=== PATIENT | female | born 1975 | race Two or more races ===

== ENCOUNTER 2021-07-13 21:13 | Emergency (ER) | payer BC ==
--- NOTE | 2021-07-13 23:44 | EDM.PDOC ---
ED HPI GENERAL MEDICAL PROBLEM - General Chief Complaint: Respiratory Problem Stated Complaint: SOB/COUGH Time Seen by Provider: 07/13/21 23:28 Source of Information: Reports: Patient History Limitations: Reports: No Limitations - History of Present Illness INITIAL COMMENTS - FREE TEXT/NARRATIVE: Mrs. Sherman is a very pleasant 45-year-old woman who now presents the ED stating that she developed ageusia and anosmia yesterday, followed by a cough productive of greenish sputum and dyspnea today. She has had chills, but no fever. No recent nausea, vomiting, or diarrhea. She states that she took some Mucinex around 15:00 this afternoon, without improvement of her symptoms. Here in the ED, the patient's initial BP is found to be moderately elevated at 159/130, otherwise, she is hemodynamically stable, afebrile, saturating 94% on room air. She appears to be comfortable, in no acute distress. Prior to yesterday, the patient denies having a recent fever, chills, sore throat, ear pain, nasal or sinus congestion, cough, dyspnea, chest pain, palpitations, nausea, vomiting, constipation, diarrhea, abdominal pain, urinary symptoms, recent weight gain or weight loss, recent bloody bowel movements or black bowel movements, recent joint aches, headaches, or rashes. The patient's PCP is SHELLI He. She has not received a COVID vaccination. - Related Data Allergies Allergy/AdvReac Type Severity Reaction Status Date / Time No Known Allergies Allergy Verified 07/13/21 21:59 Home Meds: Home Meds . [No Known Home Meds] 07/13/21 [History] Past Medical History Endocrine/Metabolic History: Reports: Obesity/BMI 30+, Other (See Below) (Pre diabetes) - Past Surgical History HEENT Surgical History: Reports: Oral Surgery (dental extraction) Female Surgical History: Reports: Section (x 1) Oncologic Surgical History: Reports: Biopsy of Breast (right x 2, left x 1 - all benign) Social & Family History - Tobacco Use Tobacco Use Status *Q: Never Tobacco User Second Hand Smoke Exposure: No - Caffeine Use Caffeine Use: Reports: Coffee - Alcohol Use Alcohol Use History: Yes Alcohol Use Frequency: Socially - Recreational Drug Use Recreational Drug Use: No - Living Situation & Occupation Living situation: Reports: , with Spouse, with Family (3 kids) Occupation: Employed ([employer]) ED ROS GENERAL - Review of Systems Review Of Systems: Comprehensive ROS is negative, except as noted in HPI. ED EXAM, GENERAL - Physical Exam Exam: See Below Exam Limited By: No Limitations General Appearance: Alert, WD/WN, No Apparent Distress Eye Exam: Bilateral Eye: EOMI, Normal Inspection Ears: Normal External Exam, Hearing Grossly Normal Nose: Normal Inspection Throat/Mouth: Normal Inspection, Normal Lips, Normal Voice, No Airway Compromise Head: Atraumatic, Normocephalic Neck: Normal Inspection, Full Range of Motion Respiratory/Chest: No Respiratory Distress, Lungs Clear, Normal Breath Sounds, No Accessory Muscle Use. No: Decreased Breath Sounds, Crackles, Rhonchi, Wheezing, Stridor, Prolonged Expiration Cardiovascular: Normal Peripheral Pulses, Regular Rate, Rhythm, No Edema, No Gallop, No JVD, No Murmur, No Rub Peripheral Pulses: 3+: Radial (L), Radial (R) GI/Abdominal: Normal Bowel Sounds, Soft, Non-Tender, No Organomegaly, No Distention, No Abnormal Bruit, No Mass Back Exam: Normal Inspection, Full Range of Motion, NT Extremities: Normal Inspection, Normal Range of Motion, No Pedal Edema, Normal Capillary Refill Neurological: Alert, Oriented, Normal Cognition, No Motor/Sensory Deficits Psychiatric: Normal Affect Skin Exam: Warm, Dry, Intact, Normal Color, No Rash Course - Vital Signs Last Recorded V/S: Last Vital Signs Temp 36.7 C 07/13/21 22:24 Pulse 98 07/13/21 22:24 Resp 18 07/13/21 22:24 BP 159/130 H 07/13/21 22:24 Pulse Ox 94 L 07/13/21 22:24 - Orders/Labs/Meds Orders: Active Orders 24 hr Category Date Time Status Chest 1V Frontal [CR] Stat Exams 07/13/21 23:41 Taken Labs: Laboratory Tests 07/13/21 07/13/21 07/13/21 Range/Units 22:20 23:59 23:59 WBC 15.82 H (3.98-10.04) K/mm3 RBC 5.02 (3.98-5.22) M/mm3 Hgb 13.8 (11.2-15.7) gm/dl Hct 42.7 (34.1-44.9) % MCV 85.1 (79.4-94.8) fl MCH 27.5 (25.6-32.2) pg MCHC 32.3 (32.2-35.5) g/dl RDW Std Deviation 44.7 (36.4-46.3) fL Plt Count 286 (182-369) K/mm3 MPV 11.4 (9.4-12.3) fl Neutrophils % (Manual) 76 H (40-60) % Band Neutrophils % 0 (0-10) % Lymphocytes % (Manual) 15 L (20-40) % Atypical Lymphs % 0 % Monocytes % (Manual) 5 (2-10) % Eosinophils % (Manual) 3 (0.7-5.8) % Basophils % (Manual) 1 (0.1-1.2) Platelet Estimate Adequate RBC Morph Comment Normal Sodium 135 L (136-145) mEq/L Potassium 3.7 (3.5-5.1) mEq/L Chloride 100 (98-107) mEq/L Carbon Dioxide 26 (21-32) mEq/L Anion Gap 12.7 (5-15) BUN 8 (7-18) mg/dL Creatinine 0.8 (0.55-1.02) mg/dL Est Cr Clr Drug Dosing 67.72 mL/min Estimated GFR (MDRD) > 60 (>60) mL/min BUN/Creatinine Ratio 10.0 L (14-18) Glucose 128 H (70-99) mg/dL Calcium 8.6 (8.5-10.1) mg/dL Total Bilirubin 0.3 (0.2-1.0) mg/dL AST 12 L (15-37) U/L ALT 20 (14-59) U/L Alkaline Phosphatase 112 (46-116) U/L C-Reactive Protein 5.0 H* (<1.0) mg/dL Total Protein 8.1 (6.4-8.2) g/dl Albumin 3.5 (3.4-5.0) g/dl Globulin 4.6 gm/dL Albumin/Globulin Ratio 0.8 L (1-2) SARS-CoV-2 RNA (KATYA) Negative (NEGATIVE) - Re-Assessments/Exams Free Text/Narrative Re-Assessment/Exam: 07/13/21 23:42 Obviously, the patient's presentation is concerning for COVID-19. A swab for the SARS-CoV-2 virus was obtained at triage, but has not yet resulted. I have added some blood work and a portable chest x-ray. 07/14/21 01:37 Portable chest radiograph appears to be grossly normal. The cardiac silhouette is within normal limits. No pulmonary vascular congestion. No pleural effusions seen on this AP view. No focal infiltrate. No pneumothorax. Formal read per the Radiologist pending. The patient's CBC is remarkable for leukocytosis of 15.82, but with 0% bandemia, 76% neutrophilia, and 15% lymphopenia, with the remainder of her CBC being unremarkable. Her CMP is remarkable for slight hyperglycemia of 128 and is otherwise unremarkable. Her CRP is elevated at 5.0. Her swab for the SARS-CoV-2 virus is negative. 07/14/21 01:46 Test results discussed with the patient. While her swab for the SARS-CoV-2 virus returned negative, I explained that the sensitivity of the test is low early in the course of the patient's illness, as the amount of virus in the posterior oropharynx can be low. Of course, it is also possible that she has some other viral illness, but her particular constellation of symptoms is most compelling for COVID-19. I recommended that she retest in about 5 days, as the sensitivity of the test 5 to 7 days into the course of COVID-19 is nearly 100%. I recommended that she get retested on , 07/18/2021. I recommended that she strictly quarantine in the meantime. I will write her a note to be off work this week. Departure - Departure Time of Disposition: 01:50 Disposition: Home, Self-Care 01 Condition: Good Clinical Impression: Viral illness - Discharge Information *PRESCRIPTION DRUG MONITORING PROGRAM REVIEWED*: Not Applicable *COPY OF PRESCRIPTION DRUG MONITORING REPORT IN PATIENT [place]: Not Applicable Referrals: Mary Robles PA-C [Primary Care Provider] - Forms: ED Department Discharge, ED Return to Work/School Form Additional Instructions: You were seen in the emergency room after losing your sense of taste and smell yesterday, then developing shortness of breath and a cough with chills today. Work-up in the ER included several blood tests, a swab for the SARS-CoV-2 virus, and a chest x-ray. Your swab for the SARS-CoV-2 virus returned negative, however, your work-up demonstrated an elevated white blood cell count, but with low lymphocytes, which is concerning for COVID-19. Your CRP, a measure of inflammation, was also found to be elevated at 5.0, which is also concerning for COVID-19. The remainder of your work-up was unremarkable. Based on your history, physical exam, and ER tests, you are most likely suffering from a viral illness. As discussed, even though your swab for the SARS-CoV-2 virus was negative, that does not mean that you do not have COVID-19 - you could, as the sensitivity of the test is low early in the course of the illness. For that reason, we recommend that you get retested for COVID-19 on , 07/18/2021. It is very important that you strictly quarantine until/unless you get a negative test. A note to be off work through 07/22/2021 has been provided to you. If any other problems, including worsening of your symptoms, please do not hesitate to return to the ER. Sepsis Event Note (ED) - Focused Exam Vital Signs: Vital Signs Temp Pulse Resp BP Pulse Ox 07/13/21 22:24 36.7 C 98 18 159/130 H 94 L - My Orders Last 24 Hours: My Active Orders 07/13/21 23:41 Chest 1V Frontal [CR] Stat - Assessment/Plan Last 24 Hours: My Active Orders 07/13/21 23:41 Chest 1V Frontal [CR] Stat
--- NOTE | 2021-07-14 09:12 | CR ---
Chest: Portable view of the chest was obtained. Comparison: No prior chest imaging is available. Heart size and mediastinum are normal. Slight linear density is seen within the right upper chest believed to represent scarring. Lungs otherwise are clear. Bony structures show nothing acute. Impression: 1. Nothing acute is identified on portable chest x-ray. Diagnostic code #1
== END 2021-07-14 02:17 | disposition home or self-care (01) ==
LOC: JD.ED 21:13
DX: B34.9 Viral infection, unspecified (principal); E66.9 Obesity, unspecified; Z68.37 Body mass index [BMI] 37.0-37.9, adult; Z20.822 Contact with and (suspected) exposure to COVID-19
CPT/HCPCS: 36415; 71045; 71045-26; 80053; 85007; 85027; 86140; 99283-25; U0002

== ENCOUNTER 2021-09-14 13:41 | Inpatient (IN) | payer BC ==
[2021-09-14] MEDS ORDERED: Sodium Chloride 0.9% 10 ML Syringe FLUSH PRN (16:12)
[2021-09-14] MEDS ORDERED: Ondansetron 4 MG/2 ML SDV IVPUSH ONE (16:12)
--- NOTE | 2021-09-14 16:24 | EDM.PDOC ---
ED HPI GENERAL MEDICAL PROBLEM - General Chief Complaint: Respiratory Problem Stated Complaint: COVID SYMPTOMS Time Seen by Provider: 09/14/21 15:28 Source of Information: Reports: Patient History Limitations: Reports: No Limitations - History of Present Illness INITIAL COMMENTS - FREE TEXT/NARRATIVE: 45-year-old female presents the emergency department with complaints of fever, chills, body aches, decreased appetite, nausea, diarrhea, loss of sense of taste and smell, as well as fatigue. Her tested positive for Covid last evening. Patient states she developed symptoms 4 days ago. She states she has not had her Covid vaccine. Abdominal Pain Score (Numeric/FACES): 5 - Related Data Allergies Allergy/AdvReac Type Severity Reaction Status Date / Time No Known Allergies Allergy Verified 09/14/21 15:33 Home Meds: Home Meds Ibuprofen 200 mg PO Q6H PRN 09/15/21 [History] Past Medical History - Past Health History Medical/Surgical History: Denies Medical/Surgical History Neurological History: Reports: Migraines Endocrine/Metabolic History: Reports: Obesity/BMI 30+, Other (See Below) - Past Surgical History HEENT Surgical History: Reports: Oral Surgery Female Surgical History: Reports: Section Oncologic Surgical History: Reports: Biopsy of Breast Social & Family History - Tobacco Use Tobacco Use Status *Q: Never Tobacco User Second Hand Smoke Exposure: No - Caffeine Use Caffeine Use: Reports: None - Recreational Drug Use Recreational Drug Use: No - Living Situation & Occupation Living situation: Reports: , with Spouse, with Family (3 kids) Occupation: Employed ([employer]) ED ROS GENERAL - Review of Systems Review Of Systems: Comprehensive ROS is negative, except as noted in HPI. ED EXAM, GENERAL - Physical Exam Exam: See Below Exam Limited By: No Limitations General Appearance: Alert, WD/WN, Mild Distress Ears: Normal External Exam, Hearing Grossly Normal Nose: Normal Inspection Throat/Mouth: Normal Inspection, Normal Lips, Normal Voice, No Airway Compromise Head: Atraumatic Neck: Normal Inspection, Supple Respiratory/Chest: No Respiratory Distress, Chest Non-Tender, Decreased Breath Sounds, Crackles (Fine crackles noted to bilateral bases) Cardiovascular: Normal Peripheral Pulses, Regular Rate, Rhythm, No Edema, No Murmur Peripheral Pulses: 2+: Radial (L), Radial (R) GI/Abdominal: Normal Bowel Sounds, Soft, Non-Tender, No Distention (Female) Exam: Deferred Rectal (Female) Exam: Deferred Back Exam: Normal Inspection Extremities: Normal Inspection Neurological: Alert, Oriented, Normal Cognition Psychiatric: Normal Affect, Normal Mood Skin Exam: Warm, Dry, Intact, Normal Color, No Rash Lymphatic: No Adenopathy Course - Vital Signs Text/Narrative:: Physical exam reveals paroxysmal cough with fine crackles noted to the bilateral bases and diminished lung sounds. Covid swab is pending. Will also obtain lab studies to include a CBC, CMP, C-reactive level, magnesium and D-dimer. We will also obtain chest x-ray. Last Recorded V/S: Last Vital Signs Temp 97.0 F 09/18/21 04:01 Pulse 69 09/18/21 04:01 Resp 18 09/18/21 04:01 BP 119/80 09/18/21 04:01 Pulse Ox 92 L 09/18/21 04:01 - Orders/Labs/Meds Orders: Medication Orders Acetaminophen (Acetaminophen 325 Mg Tab) 650 mg PO Q4H PRN PRN Reason: Pain/Fever Albuterol (Albuterol 0.083% 2.5 Mg/3 Ml Neb Soln) 2.5 mg NEB Q2H PRN PRN Reason: Dyspnea Last Admin: 09/15/21 21:51 Dose: 2.5 mg Documented by: WILFRED Albuterol (Albuterol 6.7 Gm Inhaler) 0 gm INH Q2H PRN PRN Reason: SOB/Wheezing Albuterol/Ipratropium (Albuterol/Ipratropium 3.0-0.5 Mg/3 Ml Neb Soln) 3 ml NEB Q4H PRN PRN Reason: Shortness Of Breath/wheezing Cholecalciferol (Cholecalciferol (Vitamin D3) 5,000 Unit Cap) 5,000 unit PO DAILY [facility] [place] Last Admin: 09/17/21 08:22 Dose: 5,000 unit Documented by: Admin: 09/16/21 13:53 Dose: 5,000 unit Documented by: CLAUDIA Dexamethasone (Dexamethasone 6 Mg Tablet) 6 mg PO DAILY [facility] [place] Stop: 09/23/21 09:01 Last Admin: 09/17/21 08:22 Dose: 6 mg Documented by: Admin: 09/16/21 08:51 Dose: 6 mg Documented by: Admin: 09/15/21 10:08 Dose: 6 mg Documented by: MACKENZIE Docusate Sodium (Docusate Sodium 100 Mg Cap) 100 mg PO BID PRN PRN Reason: Constipation Enoxaparin Sodium (Enoxaparin 40 Mg/0.4 Ml Syringe) 40 mg SUBCUT DAILY [facility] [place] Last Admin: 09/17/21 08:22 Dose: 40 mg Documented by: Admin: 09/16/21 08:51 Dose: 40 mg Documented by: Admin: 09/15/21 10:07 Dose: 40 mg Documented by: MACKENZIE Remdesivir 100 mg/ Sodium (Chloride) 250 mls @ 250 mls/hr IV Q24H [facility] [place] Stop: 09/18/21 18:59 Last Admin: 09/17/21 17:29 Dose: 250 mls/hr Documented by: Infusion: 09/16/21 18:36 Dose: 250 mls/hr Documented by: Admin: 09/16/21 17:36 Dose: 250 mls/hr Documented by: Infusion: 09/15/21 18:25 Dose: 250 mls/hr Documented by: Admin: 09/15/21 17:25 Dose: 250 mls/hr Documented by: MACKENZIE Insulin Human Lispro (Insulin Lispro 100 Unit/Ml 3 Ml Kwikpen) 0 unit SUBCUT QIDACANDBED [facility] [place]; Protocol Last Admin: 09/17/21 21:46 Dose: 8 units Documented by: Admin: 09/17/21 17:35 Dose: 6 units Documented by: Admin: 09/17/21 12:33 Dose: 4 units Documented by: Admin: 09/17/21 08:23 Dose: 4 units Documented by: Admin: 09/16/21 21:43 Dose: 3 units Documented by: Admin: 09/16/21 17:34 Dose: 4 units Documented by: CLAUDIA Ondansetron HCl (Ondansetron 4 Mg/2 Ml Sdv) 4 mg IVPUSH Q6H PRN PRN Reason: Nausea Ondansetron HCl (Ondansetron 4 Mg Tab.Dis) 4 mg PO Q4H PRN PRN Reason: nausea, able to take PO Last Admin: 09/16/21 08:51 Dose: 4 mg Documented by: CLAUDIA Oxycodone HCl (Oxycodone 5 Mg Tab) 5 mg PO Q4H PRN PRN Reason: Pain (moderate 4-6) Sodium Chloride (Sodium Chloride 0.9% 10 Ml Syringe) 10 ml FLUSH ASDIRECTED PRN PRN Reason: Keep Vein Open Last Admin: 09/14/21 16:39 Dose: 10 ml Documented by: JARRETT Temazepam (Temazepam 15 Mg Cap) 15 mg PO BEDTIME PRN PRN Reason: Sleep Zinc Sulfate (Zinc Sulfate 220 Mg Cap) 220 mg PO DAILY [facility] [place] Last Admin: 09/17/21 08:22 Dose: 220 mg Documented by: Admin: 09/16/21 11:17 Dose: Not Given Documented by: CLAUDIA Labs: Laboratory Tests 09/14/21 09/14/21 09/14/21 Range/Units 15:20 16:30 16:30 WBC 8.13 (3.98-10.04) K/mm3 RBC 5.37 H (3.98-5.22) M/mm3 Hgb 14.4 (11.2-15.7) gm/dl Hct 44.8 (34.1-44.9) % MCV 83.4 (79.4-94.8) fl MCH 26.8 (25.6-32.2) pg MCHC 32.1 L (32.2-35.5) g/dl RDW Std Deviation 46.1 (36.4-46.3) fL Plt Count 243 (182-369) K/mm3 MPV 10.9 (9.4-12.3) fl Neut % (Auto) 81.1 H (34.0-71.1) % Lymph % (Auto) 10.7 L (19.3-51.7) % [place] % (Auto) 8.0 (4.7-12.5) % Eos % (Auto) 0 L (0.7-5.8) Baso % (Auto) 0.1 (0.1-1.2) % Neut # (Auto) 6.59 H (1.56-6.13) K/mm3 Lymph # (Auto) 0.87 L (1.18-3.74) K/mm3 [place] # (Auto) 0.65 H (0.24-0.36) K/mm3 Eos # (Auto) 0.00 L (0.04-0.36) K/mm3 Baso # (Auto) 0.01 (0.01-0.08) K/mm3 D-Dimer, Quantitative 0.38 (0.19-0.50) mg/L Sodium (136-145) mEq/L Potassium (3.5-5.1) mEq/L Chloride (98-107) mEq/L Carbon Dioxide (21-32) mEq/L Anion Gap (5-15) BUN (7-18) mg/dL Creatinine (0.55-1.02) mg/dL Est Cr Clr Drug Dosing mL/min Estimated GFR (MDRD) (>60) mL/min BUN/Creatinine Ratio (14-18) Glucose (70-99) mg/dL Calcium (8.5-10.1) mg/dL Magnesium (1.8-2.4) mg/dL Total Bilirubin (0.2-1.0) mg/dL AST (15-37) U/L ALT (14-59) U/L Alkaline Phosphatase (46-116) U/L C-Reactive Protein (<1.0) mg/dL Total Protein (6.4-8.2) g/dl Albumin (3.4-5.0) g/dl Globulin gm/dL Albumin/Globulin Ratio (1-2) SARS-CoV-2 RNA (KATYA) Positive H (NEGATIVE) 09/14/21 Range/Units 16:30 WBC (3.98-10.04) K/mm3 RBC (3.98-5.22) M/mm3 Hgb (11.2-15.7) gm/dl Hct (34.1-44.9) % MCV (79.4-94.8) fl MCH (25.6-32.2) pg MCHC (32.2-35.5) g/dl RDW Std Deviation (36.4-46.3) fL Plt Count (182-369) K/mm3 MPV (9.4-12.3) fl Neut % (Auto) (34.0-71.1) % Lymph % (Auto) (19.3-51.7) % [place] % (Auto) (4.7-12.5) % Eos % (Auto) (0.7-5.8) Baso % (Auto) (0.1-1.2) % Neut # (Auto) (1.56-6.13) K/mm3 Lymph # (Auto) (1.18-3.74) K/mm3 [place] # (Auto) (0.24-0.36) K/mm3 Eos # (Auto) (0.04-0.36) K/mm3 Baso # (Auto) (0.01-0.08) K/mm3 D-Dimer, Quantitative (0.19-0.50) mg/L Sodium 136 (136-145) mEq/L Potassium 4.0 (3.5-5.1) mEq/L Chloride 99 (98-107) mEq/L Carbon Dioxide 25 (21-32) mEq/L Anion Gap 16.0 H (5-15) BUN 11 (7-18) mg/dL Creatinine 0.9 (0.55-1.02) mg/dL Est Cr Clr Drug Dosing 60.19 mL/min Estimated GFR (MDRD) > 60 (>60) mL/min BUN/Creatinine Ratio 12.2 L (14-18) Glucose 124 H (70-99) mg/dL Calcium 8.3 L (8.5-10.1) mg/dL Magnesium 2.4 (1.8-2.4) mg/dL Total Bilirubin 0.4 (0.2-1.0) mg/dL AST 51 H (15-37) U/L ALT 50 (14-59) U/L Alkaline Phosphatase 87 (46-116) U/L C-Reactive Protein 8.6 H* (<1.0) mg/dL Total Protein 8.0 (6.4-8.2) g/dl Albumin 3.4 (3.4-5.0) g/dl Globulin 4.6 gm/dL Albumin/Globulin Ratio 0.7 L (1-2) SARS-CoV-2 RNA (KATYA) (NEGATIVE) Meds: Medications Generic Name Dose Route Start Last Admin Trade Name Freq PRN Reason Stop Dose Admin Acetaminophen 650 mg 09/14/21 22:54 Acetaminophen 325 Mg Tab PO Q4H PRN Pain/Fever Albuterol 2.5 mg 09/14/21 22:55 11/28/21 21:51 Albuterol 0.083% 2.5 Mg/3 Ml Neb Soln NEB 2.5 mg Q2H PRN Administration Dyspnea Albuterol 0 gm 09/16/21 10:35 Albuterol 6.7 Gm Inhaler INH Q2H PRN SOB/Wheezing Albuterol/Ipratropium 3 ml 09/15/21 06:41 Albuterol/Ipratropium 3.0-0.5 Mg/3 Ml Neb Soln NEB Q4H PRN Shortness Of Breath/wheezing Cholecalciferol 5,000 unit 09/16/21 13:00 09/17/21 08:22 Cholecalciferol (Vitamin D3) 5,000 Unit Cap PO 5,000 unit DAILY FRANK Administration Dexamethasone 6 mg 09/15/21 09:00 09/17/21 08:22 Dexamethasone 6 Mg Tablet PO 09/23/21 09:01 6 mg DAILY FRANK Administration Docusate Sodium 100 mg 09/15/21 06:41 Docusate Sodium 100 Mg Cap PO BID PRN Constipation Enoxaparin Sodium 40 mg 09/15/21 09:00 09/17/21 08:22 Enoxaparin 40 Mg/0.4 Ml Syringe SUBCUT 40 mg DAILY FRANK Administration Remdesivir 100 mg/ Sodium 250 mls @ 250 mls/hr 09/15/21 18:00 09/17/21 17:29 Chloride IV 09/18/21 18:59 250 mls/hr Q24H FRANK Administration Insulin Human Lispro 0 unit 09/16/21 17:00 09/17/21 21:46 Insulin Lispro 100 Unit/Ml 3 Ml Kwikpen SUBCUT 8 units QIDACANDBED FRANK Administration Protocol Ondansetron HCl 4 mg 09/14/21 22:55 Ondansetron 4 Mg/2 Ml Sdv IVPUSH Q6H PRN Nausea Ondansetron HCl 4 mg 09/15/21 06:41 09/16/21 08:51 Ondansetron 4 Mg Tab.Dis PO 4 mg Q4H PRN Administration nausea, able to take PO Oxycodone HCl 5 mg 09/15/21 06:41 Oxycodone 5 Mg Tab PO Q4H PRN Pain (moderate 4-6) Sodium Chloride 10 ml 09/14/21 16:12 09/14/21 16:39 Sodium Chloride 0.9% 10 Ml Syringe FLUSH 10 ml ASDIRECTED PRN Administration Keep Vein Open Temazepam 15 mg 09/15/21 06:41 Temazepam 15 Mg Cap PO BEDTIME PRN Sleep Zinc Sulfate 220 mg 09/16/21 10:30 09/17/21 08:22 Zinc Sulfate 220 Mg Cap PO 220 mg DAILY FRANK Administration Discontinued Medications Generic Name Dose Route Start Last Admin Trade Name Salty PRN Reason Stop Dose Admin Dexamethasone 6 mg 09/14/21 18:58 09/14/21 19:33 Dexamethasone 6 Mg Tablet PO 09/14/21 18:59 6 mg ONETIME ONE Administration Remdesivir 200 mg/ Sodium 250 mls @ 250 mls/hr 09/14/21 18:57 09/14/21 19:31 Chloride IV 09/14/21 19:56 250 mls/hr ONETIME ONE Administration Sodium Chloride 1,000 mls @ 150 mls/hr 09/15/21 07:45 09/15/21 17:25 Normal Saline IV 150 mls/hr ASDIRECTED FRANK Administration Morphine Sulfate 2 mg 09/15/21 06:41 Morphine 2 Mg/Ml Syringe IVPUSH 09/16/21 06:41 Q2H PRN Pain (severe 7-10) Ondansetron HCl 4 mg 09/14/21 16:12 09/14/21 16:39 Ondansetron 4 Mg/2 Ml Sdv IVPUSH 09/14/21 16:13 4 mg ONETIME ONE Administration - Radiology Interpretation Free Text/Narrative:: Scattered areas of infiltrate noted to bilateral lungs consistent with Covid. Formal radiologist report is pending. - Re-Assessments/Exams Free Text/Narrative Re-Assessment/Exam: 09/14/21 18:00 Hematology reveals a WBC 7.1, hemoglobin 16.3, hematocrit 46.2, platelet count 213 Chemistry reveals a sodium of 140, potassium 3.7, anion gap 11.7, BUN 13, creatinine 0.9, GFR greater than 60, magnesium 2.2, troponin less than 0.017, proBNP 194 Patient is influenza A B and Covid negative Nursing staff notifies me that patient's oxygen saturations are 87 to 88% on room air. They have applied oxygen at 2 L per nasal cannula and the patient's oxygen levels came up to 96%. With that, the patient has no longer a candidate for antibody treatment. She likely will be admitted to the hospital. I have discussed the case with the hospitalist, Dr. Rodriguez and he has agreed to admit the patient into his service. Departure - Departure Time of Disposition: 21:45 Disposition: Admitted As Inpatient 67 Condition: Good Clinical Impression: Pneumonia due to 2019 novel coronavirus - Discharge Information Sepsis Event Note (ED) - Evaluation Sepsis Screening Result: No Definite Risk
[2021-09-14] MEDS ORDERED: REMDESIVIR 200 MG in Sodium Chloride 0.9% 250 ML IV ONE (18:57)
[2021-09-14] MEDS ORDERED: Dexamethasone 6 MG TABLET PO ONE (18:58)
[2021-09-14] MEDS ORDERED: Acetaminophen 325 MG Tab PO PRN (22:54)
[2021-09-14] MEDS ORDERED: Ondansetron 4 MG/2 ML SDV IVPUSH PRN (22:55)
[2021-09-14] MEDS ORDERED: Albuterol 0.083% 2.5 MG/3 ML Neb Soln NEB PRN (22:55)
[2021-09-15] MEDS ORDERED: Albuterol/Ipratropium 3.0-0.5 MG/3 ML Neb Soln NEB PRN (06:41)
[2021-09-15] MEDS ORDERED: Morphine 2 MG/ML SYRINGE IVPUSH PRN (06:41)
[2021-09-15] MEDS ORDERED: oxyCODONE 5 MG Tab PO PRN (06:41)
[2021-09-15] MEDS ORDERED: Docusate Sodium 100 MG Cap PO PRN (06:41)
[2021-09-15] MEDS ORDERED: Temazepam 15 MG Cap PO PRN (06:41)
--- NOTE | 2021-09-15 06:41 | PCM.HP.2 ---
H&P History of Present Illness - General Date of Service: 09/15/21 Admit Problem/Dx: Admission Diagnosis/Problem Admission Diagnosis/Problem Hypoxemia Source of Information: Patient History Limitations: Reports: No Limitations - History of Present Illness Initial Comments - Free Text/Narative: The patient is a 45-year-old lady who had presented to the emergency department with a complaint of shortness of breath, cough. Her symptoms started 4 days ago. The patient had been tested positive for COVID-19 infection. The patient says that she has had fever, chills and body aches along with some nausea and diarrhea. Patient has also reported that she has lost her sense of taste and smell. The patient only has been taking [id number] ibuprofen for pain. The patient reports that her had tested positive for COVID-19. The patient has had no specific aggravating or relieving factors although rest does improve her breathing. The patient reports that she has been healthy otherwise. Onset of Symptoms: Reports: Gradual Duration of Symptoms: Reports: Day(s):, Getting Worse Location: Reports: Generalized Quality: Reports: Ache, Burning, Dull Severity: Mild Improves with: Reports: Rest Worsens with: Reports: None Context: Reports: Sick Contact Associated Symptoms: Reports: cough w sputum, Fever/Chills Abdominal Pain Score (Numeric/FACES): 5 - Related Data Allergies/Adverse Reactions: Allergies Allergy/AdvReac Type Severity Reaction Status Date / Time No Known Allergies Allergy Verified 09/14/21 15:33 Home Medications: Home Meds Ibuprofen 200 mg PO Q6H PRN 09/15/21 [History] Past Medical History - Past Health History Medical/Surgical History: Denies Medical/Surgical History HEENT History: Reports: None Cardiovascular History: Reports: None Respiratory History: Reports: None Gastrointestinal History: Reports: None Genitourinary History: Reports: None Musculoskeletal History: Reports: None Neurological History: Reports: Migraines Psychiatric History: Reports: None Endocrine/Metabolic History: Reports: Obesity/BMI 30+ Hematologic History: Reports: None Immunologic History: Reports: None Oncologic (Cancer) History: Reports: None Dermatologic History: Reports: None - Infectious Disease History Infectious Disease History: Reports: Novel Coronavirus - Past Surgical History HEENT Surgical History: Reports: Oral Surgery Female Surgical History: Reports: Section Endocrine Surgical History: Reports: None Neurological Surgical History: Reports: None Oncologic Surgical History: Reports: Biopsy of Breast Social & Family History - Family History Family Medical History: Unobtainable - Tobacco Use Tobacco Use Status *Q: Former Tobacco User Used Tobacco, but Quit: Yes Month/Year Tobacco Last Used: 2006 Second Hand Smoke Exposure: No - Caffeine Use Caffeine Use: Reports: None - Recreational Drug Use Recreational Drug Use: No - Living Situation & Occupation Living situation: Reports: , with Spouse, with Family (3 kids) Occupation: Employed ([employer]) H&P Review of Systems - Review of Systems: Review Of Systems: See Below General: Reports: Fever, Chills, Fatigue, Decreased Appetite HEENT: Reports: No Symptoms Pulmonary: Reports: Shortness of Breath, Cough, Sputum Cardiovascular: Reports: No Symptoms Gastrointestinal: Reports: Nausea, Vomiting Genitourinary: Reports: No Symptoms Musculoskeletal: Reports: No Symptoms Skin: Reports: No Symptoms Psychiatric: Reports: No Symptoms Neurological: Reports: No Symptoms Hematologic/Lymphatic: Reports: No Symptoms Immunologic: Reports: No Symptoms Exam - Exam Exam: See Below - Vital Signs Vital Signs: Last Vital Signs Temp 36.4 C 09/15/21 04:10 Pulse 76 09/15/21 04:10 Resp 16 09/15/21 04:10 BP 92/79 09/15/21 04:10 Pulse Ox 97 09/15/21 06:00 Weight: 88.541 kg - Exam Quality Assessment: Supplemental Oxygen, DVT Prophylaxis General: Alert, Oriented, Cooperative HEENT: Conjunctiva Clear, EACs Clear, EOMI, Hearing Intact, Mucosa Moist & [place], Nares Patent, PERRLA Neck: Supple, Trachea Midline Lungs: Normal Respiratory Effort, Crackles (Bibasilar) Cardiovascular: Regular Rate, Regular Rhythm GI/Abdominal Exam: Normal Bowel Sounds, Soft, Non-Tender, No Distention (Female) Exam: Deferred Rectal (Female) Exam: Deferred Back Exam: Normal Inspection, Full Range of Motion Extremities: Normal Inspection, Normal Range of Motion, No Pedal Edema Skin: Warm, Dry, Intact Neurological: Cranial Nerves Intact, Normal Gait, Normal Speech Neuro Extensive - Mental Status: Alert, Oriented x3 Neuro Extensive - Motor, Sensory, Reflexes: CN II-XII Intact Psychiatric: Alert, Normal Affect, Normal Mood - Patient Data Lab Results Last 24 hrs: Laboratory Results - last 24 hr 09/14/21 09/14/21 09/14/21 Range/Units 15:20 16:30 16:30 WBC 8.13 (3.98-10.04) K/mm3 RBC 5.37 H (3.98-5.22) M/mm3 Hgb 14.4 (11.2-15.7) gm/dl Hct 44.8 (34.1-44.9) % MCV 83.4 (79.4-94.8) fl MCH 26.8 (25.6-32.2) pg MCHC 32.1 L (32.2-35.5) g/dl RDW Std Deviation 46.1 (36.4-46.3) fL Plt Count 243 (182-369) K/mm3 MPV 10.9 (9.4-12.3) fl Neut % (Auto) 81.1 H (34.0-71.1) % Lymph % (Auto) 10.7 L (19.3-51.7) % Trigg % (Auto) 8.0 (4.7-12.5) % Eos % (Auto) 0 L (0.7-5.8) Baso % (Auto) 0.1 (0.1-1.2) % Neut # (Auto) 6.59 H (1.56-6.13) K/mm3 Lymph # (Auto) 0.87 L (1.18-3.74) K/mm3 Trigg # (Auto) 0.65 H (0.24-0.36) K/mm3 Eos # (Auto) 0.00 L (0.04-0.36) K/mm3 Baso # (Auto) 0.01 (0.01-0.08) K/mm3 D-Dimer, Quantitative 0.38 (0.19-0.50) mg/L Sodium (136-145) mEq/L Potassium (3.5-5.1) mEq/L Chloride (98-107) mEq/L Carbon Dioxide (21-32) mEq/L Anion Gap (5-15) BUN (7-18) mg/dL Creatinine (0.55-1.02) mg/dL Est Cr Clr Drug Dosing mL/min Estimated GFR (MDRD) (>60) mL/min BUN/Creatinine Ratio (14-18) Glucose (70-99) mg/dL Calcium (8.5-10.1) mg/dL Magnesium (1.8-2.4) mg/dL Total Bilirubin (0.2-1.0) mg/dL AST (15-37) U/L ALT (14-59) U/L Alkaline Phosphatase (46-116) U/L C-Reactive Protein (<1.0) mg/dL Total Protein (6.4-8.2) g/dl Albumin (3.4-5.0) g/dl Globulin gm/dL Albumin/Globulin Ratio (1-2) SARS-CoV-2 RNA (KATYA) Positive H (NEGATIVE) 09/14/21 Range/Units 16:30 WBC (3.98-10.04) K/mm3 RBC (3.98-5.22) M/mm3 Hgb (11.2-15.7) gm/dl Hct (34.1-44.9) % MCV (79.4-94.8) fl MCH (25.6-32.2) pg MCHC (32.2-35.5) g/dl RDW Std Deviation (36.4-46.3) fL Plt Count (182-369) K/mm3 MPV (9.4-12.3) fl Neut % (Auto) (34.0-71.1) % Lymph % (Auto) (19.3-51.7) % Trigg % (Auto) (4.7-12.5) % Eos % (Auto) (0.7-5.8) Baso % (Auto) (0.1-1.2) % Neut # (Auto) (1.56-6.13) K/mm3 Lymph # (Auto) (1.18-3.74) K/mm3 Trigg # (Auto) (0.24-0.36) K/mm3 Eos # (Auto) (0.04-0.36) K/mm3 Baso # (Auto) (0.01-0.08) K/mm3 D-Dimer, Quantitative (0.19-0.50) mg/L Sodium 136 (136-145) mEq/L Potassium 4.0 (3.5-5.1) mEq/L Chloride 99 (98-107) mEq/L Carbon Dioxide 25 (21-32) mEq/L Anion Gap 16.0 H (5-15) BUN 11 (7-18) mg/dL Creatinine 0.9 (0.55-1.02) mg/dL Est Cr Clr Drug Dosing 60.19 mL/min Estimated GFR (MDRD) > 60 (>60) mL/min BUN/Creatinine Ratio 12.2 L (14-18) Glucose 124 H (70-99) mg/dL Calcium 8.3 L (8.5-10.1) mg/dL Magnesium 2.4 (1.8-2.4) mg/dL Total Bilirubin 0.4 (0.2-1.0) mg/dL AST 51 H (15-37) U/L ALT 50 (14-59) U/L Alkaline Phosphatase 87 (46-116) U/L C-Reactive Protein 8.6 H* (<1.0) mg/dL Total Protein 8.0 (6.4-8.2) g/dl Albumin 3.4 (3.4-5.0) g/dl Globulin 4.6 gm/dL Albumin/Globulin Ratio 0.7 L (1-2) SARS-CoV-2 RNA (KATYA) (NEGATIVE) Result Diagrams: 09/15/21 07:26 09/15/21 07:26 Sepsis Event Note - Evaluation Sepsis Screening Result: No Definite Risk - Focused Exam Vital Signs: Vital Signs Temp Pulse Pulse Resp BP BP Pulse Ox 09/15/21 06:00 09/15/21 04:10 36.4 C 76 16 92/79 97 09/15/21 00:24 37.0 C 85 16 112/72 90 L 09/14/21 22:27 31 H 09/14/21 22:26 37.7 C 91 18 118/64 91 L 09/14/21 21:45 92 18 115/74 96 Pulse Ox 09/15/21 06:00 97 09/15/21 04:10 09/15/21 00:24 09/14/21 22:27 09/14/21 22:26 09/14/21 21:45 - Problem List (1) Acute respiratory failure due to COVID-19 SNOMED Code(s): 495163734 ICD Code: U07.1 - COVID-19; J96.00 - ACUTE RESPIRATORY FAILURE, UNSP W HYPOXIA OR HYPERCAPNIA Status: Acute Priority: High Current Visit: Yes (2) Pneumonia due to 2019 novel coronavirus SNOMED Code(s): 330526822121077200 ICD Code: U07.1 - COVID-19; J12.82 - PNEUMONIA DUE TO CORONAVIRUS DISEASE 2019 Status: Acute Current Visit: Yes Problem List Initiated/Reviewed/Updated: Yes Orders Last 24hrs: Active Orders 24 hr Category Date Time Status Admission Status [Patient Status] [ADT] Routine ADT 09/14/21 19:03 Active Activity as Tolerated [RC] BID Care 09/14/21 22:52 Active Incentive Spirometry [RT Incentive Spirometry] [RC] Care 09/14/21 23:00 Active Q1HWA Oxygen Therapy Adult [Oxygen Therapy] [RC] ASDIRECTED Care 09/14/21 22:52 Active RT Aerosol Therapy [RC] ASDIRECTED Care 09/14/21 22:57 Active Regular Diet [DIET] Diet 09/15/21 Breakfast Active Chest 1V Frontal [CR] Stat Exams 09/14/21 16:12 Taken CBC W/O DIFF,HEMOGRAM [HEME] Routine Lab 09/15/21 05:00 Ordered CMP [COMPREHENSIVE METABOLIC PN,CMP] [CHEM] Routine Lab 09/15/21 05:00 Ordered CRP [C-REACTIVE PROTEIN] [CHEM] Routine Lab 09/15/21 05:00 Ordered MAGNESIUM [CHEM] Routine Lab 09/15/21 05:00 Ordered Acetaminophen [TylenoL] Med 09/14/21 22:54 Active 650 mg PO Q4H PRN Albuterol [Proventil Neb Soln] Med 09/14/21 22:55 Active 2.5 mg NEB Q2H PRN Ondansetron [Zofran] Med 09/14/21 22:55 Active 4 mg IVPUSH Q6H PRN Sodium Chloride 0.9% [Saline Flush] Med 09/14/21 16:12 Active 10 ml FLUSH ASDIRECTED PRN Pulse Oximetry Continuous Monitoring [OM.PC] Routine Oth 09/14/21 23:00 Active Saline Lock Insert [OM.PC] Stat Oth 09/14/21 16:12 Ordered Code Status [Resuscitation Status] Routine Resus Stat 09/14/21 22:51 Ordered Medication Orders Acetaminophen (Acetaminophen 325 Mg Tab) 650 mg PO Q4H PRN PRN Reason: Pain/Fever Albuterol (Albuterol 0.083% 2.5 Mg/3 Ml Neb Soln) 2.5 mg NEB Q2H PRN PRN Reason: Dyspnea Ondansetron HCl (Ondansetron 4 Mg/2 Ml Sdv) 4 mg IVPUSH Q6H PRN PRN Reason: Nausea Sodium Chloride (Sodium Chloride 0.9% 10 Ml Syringe) 10 ml FLUSH ASDIRECTED PRN PRN Reason: Keep Vein Open Last Admin: 09/14/21 16:39 Dose: 10 ml Documented by: JARRETT Assessment/Plan Comment:: The patient is an otherwise healthy 45-year-old lady who had been admitted secondary to acute respiratory failure due to COVID-19 pneumonia. The patient has been started on remdesivir 100 mg IV for the next 4 days. She is also on dexamethasone 6 mg p.o. daily. The patient has been anticoagulated with the use of Lovenox 40 mg subcutaneous daily. The patient has been instructed in the use of the incentive spirometer as well as Acapella. Repeat laboratory studies have been ordered for the morning. The patient should be appropriate for discharge once she has completed the full dose of remdesivir or sooner if she has improved significantly. The patient has been encouraged to ambulate. - Mortality Measure Prognosis:: Good
[2021-09-15] MEDS ORDERED: Sodium Chloride 0.9% 1,000 ML IV SCH (07:45)
--- NOTE | 2021-09-15 08:50 | CR ---
Chest: Frontal view of the chest was obtained. Comparison: Prior chest x-ray of 07/14/21. Patchy increased density is seen peripherally within both lungs. This is an interval change from prior chest x-ray. Heart size is normal. Upper mediastinum is within normal limits. Bony structures show nothing acute. Impression: 1. Findings suspicious for moderate COVID-19 pneumonia. Please correlate. Diagnostic code #3
[2021-09-15] MEDS: Enoxaparin 40 MG/0.4 ML Syringe SUBCUT SCH (10:07)
[2021-09-15] MEDS: Dexamethasone 6 MG TABLET PO SCH (10:08)
[2021-09-15] MEDS: REMDESIVIR 100 MG in Sodium Chloride 0.9% 250 ML IV SCH (17:25)
--- NOTE | 2021-09-16 08:18 | PCM.PN ---
<Juan Antonio - Last Filed: 09/16/21 12:56> - General Info Date of Service: 09/16/21 Admission Dx/Problem (Free Text): Admission Diagnosis/Problem Admission Diagnosis/Problem Hypoxemia Functional Status: Reports: Pain Controlled, Tolerating Diet, Ambulating, Urinating, Incentive Spirometry. Denies: New Symptoms - Review of Systems General: Reports: Weakness, Fatigue. Denies: No Symptoms, Fever, Malaise, Chills HEENT: Reports: No Symptoms. Denies: Headaches, Sore Throat Pulmonary: Reports: Shortness of Breath, Cough, Sputum. Denies: No Symptoms, Pleuritic Chest Pain Cardiovascular: Reports: Dyspnea on Exertion. Denies: No Symptoms, Chest Pain, Palpitations, Edema Gastrointestinal: Reports: No Symptoms. Denies: Abdominal Pain, Constipation, Diarrhea, Nausea, Vomiting Genitourinary: Reports: No Symptoms. Denies: Pain Musculoskeletal: Reports: No Symptoms Skin: Reports: No Symptoms. Denies: Cyanosis Neurological: Reports: No Symptoms. Denies: Confusion, Dizziness, Headache, Numbness, Pre-Existing Deficit, Seizure, Syncope, Tingling, Difficulty Walking, Gait Disturbance Psychiatric: Reports: No Symptoms - Patient Data Vitals - Most Recent: Last Vital Signs Temp 97.5 F 09/16/21 03:51 Pulse 70 09/16/21 03:51 Resp 16 09/16/21 03:51 BP 115/82 09/16/21 03:51 Pulse Ox 93 L 09/16/21 03:51 Weight - Most Recent: 90.129 kg I&O - Last 24 Hours: Intake & Output 09/15/21 09/16/21 09/16/21 22:59 06:59 14:59 Intake Total 800 1000 Output Total 500 Balance 800 500 Lab Results Last 24 Hours: Laboratory Results - last 24 hr 09/15/21 09/16/21 09/16/21 Range/Units 07:26 06:25 06:25 WBC 5.88 (3.98-10.04) K/mm3 RBC 4.87 (3.98-5.22) M/mm3 Hgb 12.9 (11.2-15.7) gm/dl Hct 40.6 (34.1-44.9) % MCV 83.4 (79.4-94.8) fl MCH 26.5 (25.6-32.2) pg MCHC 31.8 L (32.2-35.5) g/dl RDW Std Deviation 45.3 (36.4-46.3) fL Plt Count 302 (182-369) K/mm3 MPV 11.4 (9.4-12.3) fl Neut % (Auto) 74.6 H (34.0-71.1) % Lymph % (Auto) 14.5 L (19.3-51.7) % Nuckolls % (Auto) 10.4 (4.7-12.5) % Eos % (Auto) 0 L (0.7-5.8) Baso % (Auto) 0.2 (0.1-1.2) % Neut # (Auto) 4.39 (1.56-6.13) K/mm3 Lymph # (Auto) 0.85 L (1.18-3.74) K/mm3 [place]olls # (Auto) 0.61 H (0.24-0.36) K/mm3 Eos # (Auto) 0.00 L (0.04-0.36) K/mm3 Baso # (Auto) 0.01 (0.01-0.08) K/mm3 D-Dimer, Quantitative 0.26 (0.19-0.50) mg/L Sodium 139 (136-145) mEq/L Potassium 4.1 (3.5-5.1) mEq/L Chloride 100 (98-107) mEq/L Carbon Dioxide 25 (21-32) mEq/L Anion Gap 18.1 H (5-15) BUN 12 (7-18) mg/dL Creatinine 0.8 (0.55-1.02) mg/dL Est Cr Clr Drug Dosing 67.72 mL/min Estimated GFR (MDRD) > 60 (>60) mL/min BUN/Creatinine Ratio 15.0 (14-18) Glucose 178 H (70-99) mg/dL Calcium 8.5 (8.5-10.1) mg/dL Magnesium 2.5 H (1.8-2.4) mg/dL Total Bilirubin 0.2 (0.2-1.0) mg/dL AST 73 H (15-37) U/L ALT 79 H (14-59) U/L Alkaline Phosphatase 87 (46-116) U/L C-Reactive Protein 9.7 H* (<1.0) mg/dL Total Protein 7.7 (6.4-8.2) g/dl Albumin 3.2 L (3.4-5.0) g/dl Globulin 4.5 gm/dL Albumin/Globulin Ratio 0.7 L (1-2) 09/16/ Range/Units 06:25 WBC (3.98-10.04) K/mm3 RBC (3.98-5.22) M/mm3 Hgb (11.2-15.7) gm/dl Hct (34.1-44.9) % MCV (79.4-94.8) fl MCH (25.6-32.2) pg MCHC (32.2-35.5) g/dl RDW Std Deviation (36.4-46.3) fL Plt Count (182-369) K/mm3 MPV (9.4-12.3) fl Neut % (Auto) (34.0-71.1) % Lymph % (Auto) (19.3-51.7) % [place]uckolls % (Auto) (4.7-12.5) % Eos % (Auto) (0.7-5.8) Baso % (Auto) (0.1-1.2) % Neut # (Auto) (1.56-6.13) K/mm3 Lymph # (Auto) (1.18-3.74) K/mm3 [place] # (Auto) (0.24-0.36) K/mm3 Eos # (Auto) (0.04-0.36) K/mm3 Baso # (Auto) (0.01-0.08) K/mm3 D-Dimer, Quantitative (0.19-0.50) mg/L Sodium 139 (136-145) mEq/L Potassium 4.3 (3.5-5.1) mEq/L Chloride 105 (98-107) mEq/L Carbon Dioxide 25 (21-32) mEq/L Anion Gap 13.3 (5-15) BUN 12 (7-18) mg/dL Creatinine 0.8 (0.55-1.02) mg/dL Est Cr Clr Drug Dosing 67.72 mL/min Estimated GFR (MDRD) > 60 (>60) mL/min BUN/Creatinine Ratio 15.0 (14-18) Glucose 312 H (70-99) mg/dL Calcium 8.2 L (8.5-10.1) mg/dL Magnesium 2.4 (1.8-2.4) mg/dL Total Bilirubin 0.1 L (0.2-1.0) mg/dL AST 28 (15-37) U/L ALT 57 (14-59) U/L Alkaline Phosphatase 72 (46-116) U/L C-Reactive Protein 4.5 H* (<1.0) mg/dL Total Protein 6.4 (6.4-8.2) g/dl Albumin 2.8 L (3.4-5.0) g/dl Globulin 3.6 gm/dL Albumin/Globulin Ratio 0.8 L (1-2) Med Orders - Current: Current Medications Acetaminophen (Acetaminophen 325 Mg Tab) 650 mg PO Q4H PRN PRN Reason: Pain/Fever Albuterol (Albuterol 0.083% 2.5 Mg/3 Ml Neb Soln) 2.5 mg NEB Q2H PRN PRN Reason: Dyspnea Last Admin: 09/15/21 21:51 Dose: 2.5 mg Documented by: Albuterol/Ipratropium (Albuterol/Ipratropium 3.0-0.5 Mg/3 Ml Neb Soln) 3 ml NEB Q4H PRN PRN Reason: Shortness Of Breath/wheezing Dexamethasone (Dexamethasone 6 Mg Tablet) 6 mg PO DAILY [facility] Last Admin: 09/15/21 10:08 Dose: 6 mg Documented by: Docusate Sodium (Docusate Sodium 100 Mg Cap) 100 mg PO BID PRN PRN Reason: Constipation Enoxaparin Sodium (Enoxaparin 40 Mg/0.4 Ml Syringe) 40 mg SUBCUT DAILY [facility] Last Admin: 09/15/21 10:07 Dose: 40 mg Documented by: Remdesivir 100 mg/ Sodium (Chloride) 250 mls @ 250 mls/hr IV Q24H [facility] Stop: 09/18/21 18:59 Last Admin: 09/15/21 17:25 Dose: 250 mls/hr Documented by: Sodium Chloride (Normal Saline) 1,000 mls @ 150 mls/hr IV ASDIRECTED [facility] Last Admin: 09/15/21 17:25 Dose: 150 mls/hr Documented by: Ondansetron HCl (Ondansetron 4 Mg/2 Ml Sdv) 4 mg IVPUSH Q6H PRN PRN Reason: Nausea Ondansetron HCl (Ondansetron 4 Mg Tab.Dis) 4 mg PO Q4H PRN PRN Reason: nausea, able to take PO Oxycodone HCl (Oxycodone 5 Mg Tab) 5 mg PO Q4H PRN PRN Reason: Pain (moderate 4-6) Sodium Chloride (Sodium Chloride 0.9% 10 Ml Syringe) 10 ml FLUSH ASDIRECTED PRN PRN Reason: Keep Vein Open Last Admin: 09/14/21 16:39 Dose: 10 ml Documented by: Temazepam (Temazepam 15 Mg Cap) 15 mg PO BEDTIME PRN PRN Reason: Sleep Discontinued Medications Dexamethasone (Dexamethasone 6 Mg Tablet) 6 mg PO ONETIME ONE Stop: 09/14/21 18:59 Last Admin: 09/14/21 19:33 Dose: 6 mg Documented by: Remdesivir 200 mg/ Sodium (Chloride) 250 mls @ 250 mls/hr IV ONETIME ONE Stop: 09/14/21 19:56 Last Admin: 09/14/21 19:31 Dose: 250 mls/hr Documented by: Morphine Sulfate (Morphine 2 Mg/Ml Syringe) 2 mg IVPUSH Q2H PRN PRN Reason: Pain (severe 7-10) Stop: 09/16/21 06:41 Ondansetron HCl (Ondansetron 4 Mg/2 Ml Sdv) 4 mg IVPUSH ONETIME ONE Stop: 09/14/21 16:13 Last Admin: 09/14/21 16:39 Dose: 4 mg Documented by: - Exam Quality Assessment: Supplemental Oxygen (1L), DVT Prophylaxis. No: Urine Catheter General: Alert, Oriented, Cooperative, No Acute Distress HEENT: Pupils Equal, Pupils Reactive, Mucous Membr. Moist/[place] Neck: Supple, Trachea Midline Lungs: Normal Respiratory Effort, Decreased Breath Sounds, Crackles Cardiovascular: Regular Rate, Regular Rhythm GI/Abdominal Exam: Normal Bowel Sounds, Soft, Non-Tender, No Distention (Female) Exam: Deferred Back Exam: Normal Inspection, Full Range of Motion Extremities: Normal Inspection, Normal Range of Motion, Non-Tender, No Pedal Edema Skin: Warm, Dry, Intact Neurological: No New Focal Deficit Psy/Mental Status: Alert, Normal Affect, Normal Mood - Patient Data Lab Results Last 24 hrs: Laboratory Results - last 24 hr 09/15/21 09/16/21 09/16/21 Range/Units 07:26 06:25 06:25 WBC 5.88 (3.98-10.04) K/mm3 RBC 4.87 (3.98-5.22) M/mm3 Hgb 12.9 (11.2-15.7) gm/dl Hct 40.6 (34.1-44.9) % MCV 83.4 (79.4-94.8) fl MCH 26.5 (25.6-32.2) pg MCHC 31.8 L (32.2-35.5) g/dl RDW Std Deviation 45.3 (36.4-46.3) fL Plt Count 302 (182-369) K/mm3 MPV 11.4 (9.4-12.3) fl Neut % (Auto) 74.6 H (34.0-71.1) % Lymph % (Auto) 14.5 L (19.3-51.7) % Nuckolls % (Auto) 10.4 (4.7-12.5) % Eos % (Auto) 0 L (0.7-5.8) Baso % (Auto) 0.2 (0.1-1.2) % Neut # (Auto) 4.39 (1.56-6.13) K/mm3 Lymph # (Auto) 0.85 L (1.18-3.74) K/mm3 [place]olls # (Auto) 0.61 H (0.24-0.36) K/mm3 Eos # (Auto) 0.00 L (0.04-0.36) K/mm3 Baso # (Auto) 0.01 (0.01-0.08) K/mm3 D-Dimer, Quantitative 0.26 (0.19-0.50) mg/L Sodium 139 (136-145) mEq/L Potassium 4.1 (3.5-5.1) mEq/L Chloride 100 (98-107) mEq/L Carbon Dioxide 25 (21-32) mEq/L Anion Gap 18.1 H (5-15) BUN 12 (7-18) mg/dL Creatinine 0.8 (0.55-1.02) mg/dL Est Cr Clr Drug Dosing 67.72 mL/min Estimated GFR (MDRD) > 60 (>60) mL/min BUN/Creatinine Ratio 15.0 (14-18) Glucose 178 H (70-99) mg/dL Calcium 8.5 (8.5-10.1) mg/dL Magnesium 2.5 H (1.8-2.4) mg/dL Total Bilirubin 0.2 (0.2-1.0) mg/dL AST 73 H (15-37) U/L ALT 79 H (14-59) U/L Alkaline Phosphatase 87 (46-116) U/L C-Reactive Protein 9.7 H* (<1.0) mg/dL Total Protein 7.7 (6.4-8.2) g/dl Albumin 3.2 L (3.4-5.0) g/dl Globulin 4.5 gm/dL Albumin/Globulin Ratio 0.7 L (1-2) 09/16/21 Range/Units 06:25 WBC (3.98-10.04) K/mm3 RBC (3.98-5.22) M/mm3 Hgb (11.2-15.7) gm/dl Hct (34.1-44.9) % MCV (79.4-94.8) fl MCH (25.6-32.2) pg MCHC (32.2-35.5) g/dl RDW Std Deviation (36.4-46.3) fL Plt Count (182-369) K/mm3 MPV (9.4-12.3) fl Neut % (Auto) (34.0-71.1) % Lymph % (Auto) (19.3-51.7) % [place]uckolls % (Auto) (4.7-12.5) % Eos % (Auto) (0.7-5.8) Baso % (Auto) (0.1-1.2) % Neut # (Auto) (1.56-6.13) K/mm3 Lymph # (Auto) (1.18-3.74) K/mm3 [place]oll[place] # (Auto) (0.24-0.36) K/mm3 Eos # (Auto) (0.04-0.36) K/mm3 Baso # (Auto) (0.01-0.08) K/mm3 D-Dimer, Quantitative (0.19-0.50) mg/L Sodium 139 (136-145) mEq/L Potassium 4.3 (3.5-5.1) mEq/L Chloride 105 (98-107) mEq/L Carbon Dioxide 25 (21-32) mEq/L Anion Gap 13.3 (5-15) BUN 12 (7-18) mg/dL Creatinine 0.8 (0.55-1.02) mg/dL Est Cr Clr Drug Dosing 67.72 mL/min Estimated GFR (MDRD) > 60 (>60) mL/min BUN/Creatinine Ratio 15.0 (14-18) Glucose 312 H (70-99) mg/dL Calcium 8.2 L (8.5-10.1) mg/dL Magnesium 2.4 (1.8-2.4) mg/dL Total Bilirubin 0.1 L (0.2-1.0) mg/dL AST 28 (15-37) U/L ALT 57 (14-59) U/L Alkaline Phosphatase 72 (46-116) U/L C-Reactive Protein 4.5 H* (<1.0) mg/dL Total Protein 6.4 (6.4-8.2) g/dl Albumin 2.8 L (3.4-5.0) g/dl Globulin 3.6 gm/dL Albumin/Globulin Ratio 0.8 L (1-2) Result Diagrams: 09/16/21 06:25 09/16/21 06:25 Sepsis Event Note - Evaluation Sepsis Screening Result: No Definite Risk - Focused Exam Vital Signs: Vital Signs Temp Pulse Resp BP Pulse Ox Pulse Ox 09/16/21 03:51 97.5 F 70 16 115/82 93 L 09/15/21 23:31 97.2 F 83 20 113/69 88 L 09/15/21 21:53 92 L - Problem List & Annotations (1) Acute respiratory failure due to COVID-19 SNOMED Code(s): 571997263 Code(s): U07.1 - COVID-19; J96.00 - ACUTE RESPIRATORY FAILURE, UNSP W HYPOXIA OR HYPERCAPNIA Status: Acute Priority: High Current Visit: Yes (2) Pneumonia due to 2019 novel coronavirus SNOMED Code(s): 564639864895431416 Code(s): U07.1 - COVID-19; J12.82 - PNEUMONIA DUE TO CORONAVIRUS DISEASE 2019 Status: Acute Priority: High Current Visit: Yes - Problem List Review Problem List Initiated/Reviewed/Updated: Yes - Plan Plan:: 09/15/2021 The patient is an otherwise healthy 45-year-old lady who had been admitted secondary to acute respiratory failure due to COVID-19 pneumonia. The patient has been started on remdesivir 100 mg IV for the next 4 days. She is also on dexamethasone 6 mg p.o. daily. The patient has been anticoagulated with the use of Lovenox 40 mg subcutaneous daily. The patient has been instructed in the use of the incentive spirometer as well as Acapella. Repeat laboratory studies have been ordered for the morning. The patient should be appropriate for discharge once she has completed the full dose of remdesivir or sooner if she has improved significantly. The patient has been encouraged to ambulate. 09/16/2021 45-year-old female admitted to the floor for COVID-19 pneumonia with secondary respiratory failure. She continues on remdesivir and dexamethasone 6 mg daily. She is also receiving 40 mg Lovenox daily. She remains on 1 L of oxygen. She has been utilizing incentive spirometry and Acapella and proning. She reports she overall feels much better than yesterday. WBC today is 5.88. Hemoglobin 12.9. Platelet 302,000. Neutrophils are elevated 74.6%. D-dimer was 0.26. Sodium was 139. Potassium 4.3. Chloride 105. Carbon dioxide 25. BUN is 12. Creatinine 0.8. GFR greater than 60. Glucose is 312. Hemoglobin A1c was obtained is 6.9. Because of this her elevated hemoglobin A1c and glucose we will order low-dose sliding scale insulin and a consistent carbohydrate diet. We will also order dietitian consult and diabetic nurse educator consult. Magnesium today was 2.4. Total bilirubin 0.1. AST was 28, ALT 57, alkaline phosphatase 72. CRP was 4.5. Albumin was 2.8. Vitamin D was obtained and was 25.4. We will start her on daily vitamin D supplementation as well. She will remain hospitalized until off oxygen or completes her treatment. <Andrew Rodriguez - Last Filed: 09/16/21 15:48> - Patient Data Vitals - Most Recent: Last Vital Signs Temp 36.1 C 09/16/21 08:58 Pulse 76 09/16/21 08:58 Resp 16 09/16/21 08:58 BP 114/72 09/16/21 08:58 Pulse Ox 93 L 09/16/21 10:27 I&O - Last 24 Hours: Intake & Output 09/16/21 09/16/21 09/16/21 06:59 14:59 22:59 Intake Total 1000 120 Output Total 500 Balance 500 120 Lab Results Last 24 Hours: Laboratory Results - last 24 hr 09/16/21 09/16/21 09/16/21 Range/Units 06:25 06:25 06:25 WBC 5.88 (3.98-10.04) K/mm3 RBC 4.87 (3.98-5.22) M/mm3 Hgb 12.9 (11.2-15.7) gm/dl Hct 40.6 (34.1-44.9) % MCV 83.4 (79.4-94.8) fl MCH 26.5 (25.6-32.2) pg MCHC 31.8 L (32.2-35.5) g/dl RDW Std Deviation 45.3 (36.4-46.3) fL Plt Count 302 (182-369) K/mm3 MPV 11.4 (9.4-12.3) fl Neut % (Auto) 74.6 H (34.0-71.1) % Lymph % (Auto) 14.5 L (19.3-51.7) % [place]olls % (Auto) 10.4 (4.7-12.5) % Eos % (Auto) 0 L (0.7-5.8) Baso % (Auto) 0.2 (0.1-1.2) % Neut # (Auto) 4.39 (1.56-6.13) K/mm3 Lymph # (Auto) 0.85 L (1.18-3.74) K/mm3 [place] # (Auto) 0.61 H (0.24-0.36) K/mm3 Eos # (Auto) 0.00 L (0.04-0.36) K/mm3 Baso # (Auto) 0.01 (0.01-0.08) K/mm3 Manual Slide Review Normal smear D-Dimer, Quantitative 0.26 (0.19-0.50) mg/L Sodium 139 (136-145) mEq/L Potassium 4.3 (3.5-5.1) mEq/L Chloride 105 (98-107) mEq/L Carbon Dioxide 25 (21-32) mEq/L Anion Gap 13.3 (5-15) BUN 12 (7-18) mg/dL Creatinine 0.8 (0.55-1.02) mg/dL Est Cr Clr Drug Dosing 67.72 mL/min Estimated GFR (MDRD) > 60 (>60) mL/min BUN/Creatinine Ratio 15.0 (14-18) Glucose 312 H (70-99) mg/dL Hemoglobin A1c ( - 5.6) % Calcium 8.2 L (8.5-10.1) mg/dL Magnesium 2.4 (1.8-2.4) mg/dL Total Bilirubin 0.1 L (0.2-1.0) mg/dL AST 28 (15-37) U/L ALT 57 (14-59) U/L Alkaline Phosphatase 72 (46-116) U/L C-Reactive Protein 4.5 H* (<1.0) mg/dL Total Protein 6.4 (6.4-8.2) g/dl Albumin 2.8 L (3.4-5.0) g/dl Globulin 3.6 gm/dL Albumin/Globulin Ratio 0.8 L (1-2) Vitamin D 25-Hydroxy (30.0-100.0) ng/ml 09/16/21 09/16/21 Range/Units 06:25 06:30 WBC (3.98-10.04) K/mm3 RBC (3.98-5.22) M/mm3 Hgb (11.2-15.7) gm/dl Hct (34.1-44.9) % MCV (79.4-94.8) fl MCH (25.6-32.2) pg MCHC (32.2-35.5) g/dl RDW Std Deviation (36.4-46.3) fL Plt Count (182-369) K/mm3 MPV (9.4-12.3) fl Neut % (Auto) (34.0-71.1) % Lymph % (Auto) (19.3-51.7) % [place] % (Auto) (4.7-12.5) % Eos % (Auto) (0.7-5.8) Baso % (Auto) (0.1-1.2) % Neut # (Auto) (1.56-6.13) K/mm3 Lymph # (Auto) (1.18-3.74) K/mm3 [place] # (Auto) (0.24-0.36) K/mm3 Eos # (Auto) (0.04-0.36) K/mm3 Baso # (Auto) (0.01-0.08) K/mm3 Manual Slide Review D-Dimer, Quantitative (0.19-0.50) mg/L Sodium (136-145) mEq/L Potassium (3.5-5.1) mEq/L Chloride (98-107) mEq/L Carbon Dioxide (21-32) mEq/L Anion Gap (5-15) BUN (7-18) mg/dL Creatinine (0.55-1.02) mg/dL Est Cr Clr Drug Dosing mL/min Estimated GFR (MDRD) (>60) mL/min BUN/Creatinine Ratio (14-18) Glucose (70-99) mg/dL Hemoglobin A1c 6.9 H ( - 5.6) % Calcium (8.5-10.1) mg/dL Magnesium (1.8-2.4) mg/dL Total Bilirubin (0.2-1.0) mg/dL AST (15-37) U/L ALT (14-59) U/L Alkaline Phosphatase (46-116) U/L C-Reactive Protein (<1.0) mg/dL Total Protein (6.4-8.2) g/dl Albumin (3.4-5.0) g/dl Globulin gm/dL Albumin/Globulin Ratio (1-2) Vitamin D 25-Hydroxy 25.4 L (30.0-100.0) ng/ml Med Orders - Current: Current Medications Acetaminophen (Acetaminophen 325 Mg Tab) 650 mg PO Q4H PRN PRN Reason: Pain/Fever Albuterol (Albuterol 0.083% 2.5 Mg/3 Ml Neb Soln) 2.5 mg NEB Q2H PRN PRN Reason: Dyspnea Last Admin: 09/15/21 21:51 Dose: 2.5 mg Documented by: Albuterol (Albuterol 6.7 Gm Inhaler) 0 gm INH Q2H PRN PRN Reason: SOB/Wheezing Albuterol/Ipratropium (Albuterol/Ipratropium 3.0-0.5 Mg/3 Ml Neb Soln) 3 ml NEB Q4H PRN PRN Reason: Shortness Of Breath/wheezing Cholecalciferol (Cholecalciferol (Vitamin D3) 5,000 Unit Cap) 5,000 unit PO DAILY [facility] Last Admin: 09/16/21 13:53 Dose: 5,000 unit Documented by: Dexamethasone (Dexamethasone 6 Mg Tablet) 6 mg PO DAILY [facility] Stop: 09/23/21 09:01 Last Admin: 09/16/21 08:51 Dose: 6 mg Documented by: Docusate Sodium (Docusate Sodium 100 Mg Cap) 100 mg PO BID PRN PRN Reason: Constipation Enoxaparin Sodium (Enoxaparin 40 Mg/0.4 Ml Syringe) 40 mg SUBCUT DAILY [facility] Last Admin: 09/16/21 08:51 Dose: 40 mg Documented by: Remdesivir 100 mg/ Sodium (Chloride) 250 mls @ 250 mls/hr IV Q24H [facility] Stop: 09/18/21 18:59 Last Admin: 09/15/21 17:25 Dose: 250 mls/hr Documented by: Insulin Human Lispro (Insulin Lispro 100 Unit/Ml 3 Ml Kwikpen) 0 unit SUBCUT QI DACANDBED [facility]; Protocol Ondansetron HCl (Ondansetron 4 Mg/2 Ml Sdv) 4 mg IVPUSH Q6H PRN PRN Reason: Nausea Ondansetron HCl (Ondansetron 4 Mg Tab.Dis) 4 mg PO Q4H PRN PRN Reason: nausea, able to take PO Last Admin: 09/16/21 08:51 Dose: 4 mg Documented by: Oxycodone HCl (Oxycodone 5 Mg Tab) 5 mg PO Q4H PRN PRN Reason: Pain (moderate 4-6) Sodium Chloride (Sodium Chloride 0.9% 10 Ml Syringe) 10 ml FLUSH ASDIRECTED PRN PRN Reason: Keep Vein Open Last Admin: 09/14/21 16:39 Dose: 10 ml Documented by: Temazepam (Temazepam 15 Mg Cap) 15 mg PO BEDTIME PRN PRN Reason: Sleep Zinc Sulfate (Zinc Sulfate 220 Mg Cap) 220 mg PO DAILY [facility] Last Admin: 09/16/21 11:17 Dose: Not Given Documented by: Discontinued Medications Dexamethasone (Dexamethasone 6 Mg Tablet) 6 mg PO ONETIME ONE Stop: 09/14/21 18:59 Last Admin: 09/14/21 19:33 Dose: 6 mg Documented by: Remdesivir 200 mg/ Sodium (Chloride) 250 mls @ 250 mls/hr IV ONETIME ONE Stop: 09/14/21 19:56 Last Admin: 09/14/21 19:31 Dose: 250 mls/hr Documented by: Sodium Chloride (Normal Saline) 1,000 mls @ 150 mls/hr IV ASDIRECTED [facility] Last Admin: 09/15/21 17:25 Dose: 150 mls/hr Documented by: Morphine Sulfate (Morphine 2 Mg/Ml Syringe) 2 mg IVPUSH Q2H PRN PRN Reason: Pain (severe 7-10) Stop: 09/16/21 06:41 Ondansetron HCl (Ondansetron 4 Mg/2 Ml Sdv) 4 mg IVPUSH ONETIME ONE Stop: 09/14/21 16:13 Last Admin: 09/14/21 16:39 Dose: 4 mg Documented by: - Patient Data Lab Results Last 24 hrs: Laboratory Results - last 24 hr 09/16/21 09/16/21 09/16/21 Range/Units 06:25 06:25 06:25 WBC 5.88 (3.98-10.04) K/mm3 RBC 4.87 (3.98-5.22) M/mm3 Hgb 12.9 (11.2-15.7) gm/dl Hct 40.6 (34.1-44.9) % MCV 83.4 (79.4-94.8) fl MCH 26.5 (25.6-32.2) pg MCHC 31.8 L (32.2-35.5) g/dl RDW Std Deviation 45.3 (36.4-46.3) fL Plt Count 302 (182-369) K/mm3 MPV 11.4 (9.4-12.3) fl Neut % (Auto) 74.6 H (34.0-71.1) % Lymph % (Auto) 14.5 L (19.3-51.7) % [place] % (Auto) 10.4 (4.7-12.5) % Eos % (Auto) 0 L (0.7-5.8) Baso % (Auto) 0.2 (0.1-1.2) % Neut # (Auto) 4.39 (1.56-6.13) K/mm3 Lymph # (Auto) 0.85 L (1.18-3.74) K/mm3 [place]s # (Auto) 0.61 H (0.24-0.36) K/mm3 Eos # (Auto) 0.00 L (0.04-0.36) K/mm3 Baso # (Auto) 0.01 (0.01-0.08) K/mm3 Manual Slide Review Normal smear D-Dimer, Quantitative 0.26 (0.19-0.50) mg/L Sodium 139 (136-145) mEq/L Potassium 4.3 (3.5-5.1) mEq/L Chloride 105 (98-107) mEq/L Carbon Dioxide 25 (21-32) mEq/L Anion Gap 13.3 (5-15) BUN 12 (7-18) mg/dL Creatinine 0.8 (0.55-1.02) mg/dL Est Cr Clr Drug Dosing 67.72 mL/min Estimated GFR (MDRD) > 60 (>60) mL/min BUN/Creatinine Ratio 15.0 (14-18) Glucose 312 H (70-99) mg/dL Hemoglobin A1c ( - 5.6) % Calcium 8.2 L (8.5-10.1) mg/dL Magnesium 2.4 (1.8-2.4) mg/dL Total Bilirubin 0.1 L (0.2-1.0) mg/dL AST 28 (15-37) U/L ALT 57 (14-59) U/L Alkaline Phosphatase 72 (46-116) U/L C-Reactive Protein 4.5 H* (<1.0) mg/dL Total Protein 6.4 (6.4-8.2) g/dl Albumin 2.8 L (3.4-5.0) g/dl Globulin 3.6 gm/dL Albumin/Globulin Ratio 0.8 L (1-2) Vitamin D 25-Hydroxy (30.0-100.0) ng/ml 09/16/21 09/16/21 Range/Units 06:25 06:30 WBC (3.98-10.04) K/mm3 RBC (3.98-5.22) M/mm3 Hgb (11.2-15.7) gm/dl Hct (34.1-44.9) % MCV (79.4-94.8) fl MCH (25.6-32.2) pg MCHC (32.2-35.5) g/dl RDW Std Deviation (36.4-46.3) fL Plt Count (182-369) K/mm3 MPV (9.4-12.3) fl Neut % (Auto) (34.0-71.1) % Lymph % (Auto) (19.3-51.7) % Nuckolls % (Auto) (4.7-12.5) % Eos % (Auto) (0.7-5.8) Baso % (Auto) (0.1-1.2) % Neut # (Auto) (1.56-6.13) K/mm3 Lymph # (Auto) (1.18-3.74) K/mm3 Nuckolls # (Auto) (0.24-0.36) K/mm3 Eos # (Auto) (0.04-0.36) K/mm3 Baso # (Auto) (0.01-0.08) K/mm3 Manual Slide Review D-Dimer, Quantitative (0.19-0.50) mg/L Sodium (136-145) mEq/L Potassium (3.5-5.1) mEq/L Chloride (98-107) mEq/L Carbon Dioxide (21-32) mEq/L Anion Gap (5-15) BUN (7-18) mg/dL Creatinine (0.55-1.02) mg/dL Est Cr Clr Drug Dosing mL/min Estimated GFR (MDRD) (>60) mL/min BUN/Creatinine Ratio (14-18) Glucose (70-99) mg/dL Hemoglobin A1c 6.9 H ( - 5.6) % Calcium (8.5-10.1) mg/dL Magnesium (1.8-2.4) mg/dL Total Bilirubin (0.2-1.0) mg/dL AST (15-37) U/L ALT (14-59) U/L Alkaline Phosphatase (46-116) U/L C-Reactive Protein (<1.0) mg/dL Total Protein (6.4-8.2) g/dl Albumin (3.4-5.0) g/dl Globulin gm/dL Albumin/Globulin Ratio (1-2) Vitamin D 25-Hydroxy 25.4 L (30.0-100.0) ng/ml Result Diagrams: 09/16/21 06:25 09/16/21 06:25 Sepsis Event Note - Focused Exam Vital Signs: Vital Signs Temp Pulse Resp BP Pulse Ox Pulse Ox 09/16/21 10:27 93 L 09/16/21 08:58 36.1 C 76 16 114/72 90 L 09/16/21 03:51 36.4 C 70 16 115/82 93 L - Problem List & Annotations (1) Acute respiratory failure due to COVID-19 SNOMED Code(s): 421151021 Code(s): U07.1 - COVID-19; J96.00 - ACUTE RESPIRATORY FAILURE, UNSP W HYPOXIA OR HYPERCAPNIA Status: Acute Priority: High Current Visit: Yes (2) Pneumonia due to 2019 novel coronavirus SNOMED Code(s): 654430806068616859 Code(s): U07.1 - COVID-19; J12.82 - PNEUMONIA DUE TO CORONAVIRUS DISEASE 2019 Status: Acute Priority: High Current Visit: Yes - My Orders Last 24 Hours: My Active Orders 09/15/21 18:00 Remdesivir 100 mg Sodium Chloride 0.9% [Normal Saline] 250 ml IV Q24H 09/16/21 Lunch Consistent Carbohydrate Diet [DIET] - Free Text/Narrative Note: I have seen and examined the patient independently of SHELLI Antonio. I have discussed the case with him. I have also reviewed and agree with the plan of care as outlined by him. Please see orders.
[2021-09-16] MEDS: Enoxaparin 40 MG/0.4 ML Syringe SUBCUT SCH (08:51)
[2021-09-16] MEDS: Dexamethasone 6 MG TABLET PO SCH (08:51)
[2021-09-16] MEDS: Ondansetron 4 MG Tab.DIS PO PRN (08:51)
[2021-09-16] MEDS ORDERED: Albuterol 6.7 GM Inhaler INH PRN (10:35)
[2021-09-16] MEDS: Zinc Sulfate 220 MG Cap PO SCH (11:17)
[2021-09-16 12:22] LABS: HEMOGLOBIN A1C 6.9 %
[2021-09-16] MEDS: Cholecalciferol (Vitamin D3) 5,000 UNIT Cap PO SCH (13:53)
[2021-09-16] MEDS: Insulin Lispro 100 Unit/ML 3 ML KwikPen SUBCUT SCH ×2 (17:34→21:43)
[2021-09-16] MEDS: REMDESIVIR 100 MG in Sodium Chloride 0.9% 250 ML IV SCH (17:36)
--- NOTE | 2021-09-17 07:27 | PCM.PN ---
<Juan Antonio - Last Filed: 09/17/21 09:41> - General Info Date of Service: 09/17/21 Admission Dx/Problem (Free Text): Admission Diagnosis/Problem Admission Diagnosis/Problem Hypoxemia Functional Status: Reports: Pain Controlled, Tolerating Diet, Ambulating, Urinating, Incentive Spirometry. Denies: New Symptoms - Review of Systems General: Reports: Weakness (improving ). Denies: Fever, Fatigue, Malaise, Chills HEENT: Reports: No Symptoms. Denies: Headaches, Sore Throat Pulmonary: Reports: Shortness of Breath, Pleuritic Chest Pain, Cough, Sputum. Denies: Wheezing Cardiovascular: Reports: Dyspnea on Exertion. Denies: Chest Pain, Palpitations, Edema Gastrointestinal: Reports: No Symptoms. Denies: Abdominal Pain, Constipation, Diarrhea, Nausea, Vomiting Genitourinary: Reports: No Symptoms. Denies: Pain Musculoskeletal: Reports: No Symptoms Skin: Reports: No Symptoms. Denies: Cyanosis Neurological: Reports: No Symptoms. Denies: Confusion, Dizziness, Headache, Numbness, Pre-Existing Deficit, Tingling, Difficulty Walking, Gait Disturbance Psychiatric: Reports: No Symptoms - Patient Data Vitals - Most Recent: Last Vital Signs Temp 97.3 F 09/17/21 06:24 Pulse 73 09/17/21 06:24 Resp 18 09/17/21 06:24 BP 99/74 09/17/21 06:24 Pulse Ox 96 09/17/21 06:24 Weight - Most Recent: 89.539 kg I&O - Last 24 Hours: Intake & Output 09/16/21 09/17/21 09/17/21 22:59 06:59 14:59 Intake Total 275 150 Output Total 200 400 Balance 75 -250 Lab Results Last 24 Hours: Laboratory Results - last 24 hr 09/16/21 09/16/21 09/16/21 Range/Units 06:25 06:25 06:25 WBC 5.88 (3.98-10.04) K/mm3 RBC 4.87 (3.98-5.22) M/mm3 Hgb 12.9 (11.2-15.7) gm/dl Hct 40.6 (34.1-44.9) % MCV 83.4 (79.4-94.8) fl MCH 26.5 (25.6-32.2) pg MCHC 31.8 L (32.2-35.5) g/dl RDW Std Deviation 45.3 (36.4-46.3) fL Plt Count 302 (182-369) K/mm3 MPV 11.4 (9.4-12.3) fl Neut % (Auto) 74.6 H (34.0-71.1) % Lymph % (Auto) 14.5 L (19.3-51.7) % Russell % (Auto) 10.4 (4.7-12.5) % Eos % (Auto) 0 L (0.7-5.8) Baso % (Auto) 0.2 (0.1-1.2) % Neut # (Auto) 4.39 (1.56-6.13) K/mm3 Lymph # (Auto) 0.85 L (1.18-3.74) K/mm3 Russell # (Auto) 0.61 H (0.24-0.36) K/mm3 Eos # (Auto) 0.00 L (0.04-0.36) K/mm3 Baso # (Auto) 0.01 (0.01-0.08) K/mm3 Manual Slide Review Normal smear D-Dimer, Quantitative 0.26 (0.19-0.50) mg/L Sodium 139 (136-145) mEq/L Potassium 4.3 (3.5-5.1) mEq/L Chloride 105 (98-107) mEq/L Carbon Dioxide 25 (21-32) mEq/L Anion Gap 13.3 (5-15) BUN 12 (7-18) mg/dL Creatinine 0.8 (0.55-1.02) mg/dL Est Cr Clr Drug Dosing 67.72 mL/min Estimated GFR (MDRD) > 60 (>60) mL/min BUN/Creatinine Ratio 15.0 (14-18) Glucose 312 H (70-99) mg/dL POC Glucose (70-99) mg/dL Hemoglobin A1c ( - 5.6) % Calcium 8.2 L (8.5-10.1) mg/dL Magnesium 2.4 (1.8-2.4) mg/dL Total Bilirubin 0.1 L (0.2-1.0) mg/dL AST 28 (15-37) U/L ALT 57 (14-59) U/L Alkaline Phosphatase 72 (46-116) U/L C-Reactive Protein 4.5 H* (<1.0) mg/dL Total Protein 6.4 (6.4-8.2) g/dl Albumin 2.8 L (3.4-5.0) g/dl Globulin 3.6 gm/dL Albumin/Globulin Ratio 0.8 L (1-2) Vitamin D 25-Hydroxy (30.0-100.0) ng/ml 09/16/21 09/16/21 09/16/21 Range/Units 06:25 06:30 17:19 WBC (3.98-10.04) K/mm3 RBC (3.98-5.22) M/mm3 Hgb (11.2-15.7) gm/dl Hct (34.1-44.9) % MCV (79.4-94.8) fl MCH (25.6-32.2) pg MCHC (32.2-35.5) g/dl RDW Std Deviation (36.4-46.3) fL Plt Count (182-369) K/mm3 MPV (9.4-12.3) fl Neut % (Auto) (34.0-71.1) % Lymph % (Auto) (19.3-51.7) % Russell % (Auto) (4.7-12.5) % Eos % (Auto) (0.7-5.8) Baso % (Auto) (0.1-1.2) % Neut # (Auto) (1.56-6.13) K/mm3 Lymph # (Auto) (1.18-3.74) K/mm3 Russell # (Auto) (0.24-0.36) K/mm3 Eos # (Auto) (0.04-0.36) K/mm3 Baso # (Auto) (0.01-0.08) K/mm3 Manual Slide Review D-Dimer, Quantitative (0.19-0.50) mg/L Sodium (136-145) mEq/L Potassium (3.5-5.1) mEq/L Chloride (98-107) mEq/L Carbon Dioxide (21-32) mEq/L Anion Gap (5-15) BUN (7-18) mg/dL Creatinine (0.55-1.02) mg/dL Est Cr Clr Drug Dosing mL/min Estimated GFR (MDRD) (>60) mL/min BUN/Creatinine Ratio (14-18) Glucose (70-99) mg/dL POC Glucose 327 H (70-99) mg/dL Hemoglobin A1c 6.9 H ( - 5.6) % Calcium (8.5-10.1) mg/dL Magnesium (1.8-2.4) mg/dL Total Bilirubin (0.2-1.0) mg/dL AST (15-37) U/L ALT (14-59) U/L Alkaline Phosphatase (46-116) U/L C-Reactive Protein (<1.0) mg/dL Total Protein (6.4-8.2) g/dl Albumin (3.4-5.0) g/dl Globulin gm/dL Albumin/Globulin Ratio (1-2) Vitamin D 25-Hydroxy 25.4 L (30.0-100.0) ng/ml 09/16/21 09/17/21 09/17/21 Range/Units 21:27 06:13 06:39 WBC 7.97 (3.98-10.04) K/mm3 RBC 5.05 (3.98-5.22) M/mm3 Hgb 13.4 (11.2-15.7) gm/dl Hct 42.2 (34.1-44.9) % MCV 83.6 (79.4-94.8) fl MCH 26.5 (25.6-32.2) pg MCHC 31.8 L (32.2-35.5) g/dl RDW Std Deviation 45.7 (36.4-46.3) fL Plt Count 362 (182-369) K/mm3 MPV 11.3 (9.4-12.3) fl Neut % (Auto) 67.4 (34.0-71.1) % Lymph % (Auto) 19.8 (19.3-51.7) % Russell % (Auto) 12.4 (4.7-12.5) % Eos % (Auto) 0 L (0.7-5.8) Baso % (Auto) 0.1 (0.1-1.2) % Neut # (Auto) 5.37 (1.56-6.13) K/mm3 Lymph # (Auto) 1.58 (1.18-3.74) K/mm3 Russell # (Auto) 0.99 H (0.24-0.36) K/mm3 Eos # (Auto) 0.00 L (0.04-0.36) K/mm3 Baso # (Auto) 0.01 (0.01-0.08) K/mm3 Manual Slide Review Normal smear D-Dimer, Quantitative (0.19-0.50) mg/L Sodium (136-145) mEq/L Potassium (3.5-5.1) mEq/L Chloride (98-107) mEq/L Carbon Dioxide (21-32) mEq/L Anion Gap (5-15) BUN (7-18) mg/dL Creatinine (0.55-1.02) mg/dL Est Cr Clr Drug Dosing mL/min Estimated GFR (MDRD) (>60) mL/min BUN/Creatinine Ratio (14-18) Glucose (70-99) mg/dL POC Glucose 277 H 236 H (70-99) mg/dL Hemoglobin A1c ( - 5.6) % Calcium (8.5-10.1) mg/dL Magnesium (1.8-2.4) mg/dL Total Bilirubin (0.2-1.0) mg/dL AST (15-37) U/L ALT (14-59) U/L Alkaline Phosphatase (46-116) U/L C-Reactive Protein (<1.0) mg/dL Total Protein (6.4-8.2) g/dl Albumin (3.4-5.0) g/dl Globulin gm/dL Albumin/Globulin Ratio (1-2) Vitamin D 25-Hydroxy (30.0-100.0) ng/ml Med Orders - Current: Current Medications Acetaminophen (Acetaminophen 325 Mg Tab) 650 mg PO Q4H PRN PRN Reason: Pain/Fever Albuterol (Albuterol 0.083% 2.5 Mg/3 Ml Neb Soln) 2.5 mg NEB Q2H PRN PRN Reason: Dyspnea Last Admin: 09/15/21 21:51 Dose: 2.5 mg Documented by: Albuterol (Albuterol 6.7 Gm Inhaler) 0 gm INH Q2H PRN PRN Reason: SOB/Wheezing Albuterol/Ipratropium (Albuterol/Ipratropium 3.0-0.5 Mg/3 Ml Neb Soln) 3 ml NEB Q4H PRN PRN Reason: Shortness Of Breath/wheezing Cholecalciferol (Cholecalciferol (Vitamin D3) 5,000 Unit Cap) 5,000 unit PO DAILY [facility] Last Admin: 09/16/21 13:53 Dose: 5,000 unit Documented by: Dexamethasone (Dexamethasone 6 Mg Tablet) 6 mg PO DAILY [facility] Stop: 09/23/21 09:01 Last Admin: 09/16/21 08:51 Dose: 6 mg Documented by: Docusate Sodium (Docusate Sodium 100 Mg Cap) 100 mg PO BID PRN PRN Reason: Constipation Enoxaparin Sodium (Enoxaparin 40 Mg/0.4 Ml Syringe) 40 mg SUBCUT DAILY [facility] Last Admin: 09/16/21 08:51 Dose: 40 mg Documented by: Remdesivir 100 mg/ Sodium (Chloride) 250 mls @ 250 mls/hr IV Q24H [facility] Stop: 09/18/21 18:59 Last Admin: 09/16/21 17:36 Dose: 250 mls/hr Documented by: Insulin Human Lispro (Insulin Lispro 100 Unit/Ml 3 Ml Kwikpen) 0 unit SUBCUT QIDACANDBED [facility]; Protocol Last Admin: 09/16/21 21:43 Dose: 3 units Documented by: Ondansetron HCl (Ondansetron 4 Mg/2 Ml Sdv) 4 mg IVPUSH Q6H PRN PRN Reason: Nausea Ondansetron HCl (Ondansetron 4 Mg Tab.Dis) 4 mg PO Q4H PRN PRN Reason: nausea, able to take PO Last Admin: 09/16/21 08:51 Dose: 4 mg Documented by: Oxycodone HCl (Oxycodone 5 Mg Tab) 5 mg PO Q4H PRN PRN Reason: Pain (moderate 4-6) Sodium Chloride (Sodium Chloride 0.9% 10 Ml Syringe) 10 ml FLUSH ASDIRECTED PRN PRN Reason: Keep Vein Open Last Admin: 09/14/21 16:39 Dose: 10 ml Documented by: Temazepam (Temazepam 15 Mg Cap) 15 mg PO BEDTIME PRN PRN Reason: Sleep Zinc Sulfate (Zinc Sulfate 220 Mg Cap) 220 mg PO DAILY [facility] Last Admin: 09/16/21 11:17 Dose: Not Given Documented by: Discontinued Medications Dexamethasone (Dexamethasone 6 Mg Tablet) 6 mg PO ONETIME ONE Stop: 09/14/21 18:59 Last Admin: 09/14/21 19:33 Dose: 6 mg Documented by: Remdesivir 200 mg/ Sodium (Chloride) 250 mls @ 250 mls/hr IV ONETIME ONE Stop: 09/14/21 19:56 Last Admin: 09/14/21 19:31 Dose: 250 mls/hr Documented by: Sodium Chloride (Normal Saline) 1,000 mls @ 150 mls/hr IV ASDIRECTED [facility] Last Admin: 09/15/21 17:25 Dose: 150 mls/hr Documented by: Morphine Sulfate (Morphine 2 Mg/Ml Syringe) 2 mg IVPUSH Q2H PRN PRN Reason: Pain (severe 7-10) Stop: 09/16/21 06:41 Ondansetron HCl (Ondansetron 4 Mg/2 Ml Sdv) 4 mg IVPUSH ONETIME ONE Stop: 09/14/21 16:13 Last Admin: 09/14/21 16:39 Dose: 4 mg Documented by: - Exam Quality Assessment: Supplemental Oxygen (0.5L), DVT Prophylaxis. No: Urine Catheter General: Alert, Oriented, Cooperative, No Acute Distress HEENT: Pupils Equal, Pupils Reactive, Mucous Membr. Moist/[place] Neck: Supple, Trachea Midline Lungs: Normal Respiratory Effort, Decreased Breath Sounds, Crackles Cardiovascular: Regular Rate, Regular Rhythm GI/Abdominal Exam: Normal Bowel Sounds, Soft, Non-Tender, No Distention (Female) Exam: Deferred Back Exam: Normal Inspection, Full Range of Motion Extremities: Normal Inspection, Normal Range of Motion, Non-Tender, No Pedal Edema, Normal Capillary Refill Skin: Warm, Dry, Intact Neurological: No New Focal Deficit Psy/Mental Status: Alert, Normal Affect, Normal Mood - Patient Data Lab Results Last 24 hrs: Laboratory Results - last 24 hr 09/16/21 09/16/21 09/16/21 Range/Units 06:25 06:25 06:25 WBC 5.88 (3.98-10.04) K/mm3 RBC 4.87 (3.98-5.22) M/mm3 Hgb 12.9 (11.2-15.7) gm/dl Hct 40.6 (34.1-44.9) % MCV 83.4 (79.4-94.8) fl MCH 26.5 (25.6-32.2) pg MCHC 31.8 L (32.2-35.5) g/dl RDW Std Deviation 45.3 (36.4-46.3) fL Plt Count 302 (182-369) K/mm3 MPV 11.4 (9.4-12.3) fl Neut % (Auto) 74.6 H (34.0-71.1) % Lymph % (Auto) 14.5 L (19.3-51.7) % Russell % (Auto) 10.4 (4.7-12.5) % Eos % (Auto) 0 L (0.7-5.8) Baso % (Auto) 0.2 (0.1-1.2) % Neut # (Auto) 4.39 (1.56-6.13) K/mm3 Lymph # (Auto) 0.85 L (1.18-3.74) K/mm3 Russell # (Auto) 0.61 H (0.24-0.36) K/mm3 Eos # (Auto) 0.00 L (0.04-0.36) K/mm3 Baso # (Auto) 0.01 (0.01-0.08) K/mm3 Manual Slide Review Normal smear D-Dimer, Quantitative 0.26 (0.19-0.50) mg/L Sodium 139 (136-145) mEq/L Potassium 4.3 (3.5-5.1) mEq/L Chloride 105 (98-107) mEq/L Carbon Dioxide 25 (21-32) mEq/L Anion Gap 13.3 (5-15) BUN 12 (7-18) mg/dL Creatinine 0.8 (0.55-1.02) mg/dL Est Cr Clr Drug Dosing 67.72 mL/min Estimated GFR (MDRD) > 60 (>60) mL/min BUN/Creatinine Ratio 15.0 (14-18) Glucose 312 H (70-99) mg/dL POC Glucose (70-99) mg/dL Hemoglobin A1c ( - 5.6) % Calcium 8.2 L (8.5-10.1) mg/dL Magnesium 2.4 (1.8-2.4) mg/dL Total Bilirubin 0.1 L (0.2-1.0) mg/dL AST 28 (15-37) U/L ALT 57 (14-59) U/L Alkaline Phosphatase 72 (46-116) U/L C-Reactive Protein 4.5 H* (<1.0) mg/dL Total Protein 6.4 (6.4-8.2) g/dl Albumin 2.8 L (3.4-5.0) g/dl Globulin 3.6 gm/dL Albumin/Globulin Ratio 0.8 L (1-2) Vitamin D 25-Hydroxy (30.0-100.0) ng/ml 09/16/21 09/16/21 09/16/21 Range/Units 06:25 06:30 17:19 WBC (3.98-10.04) K/mm3 RBC (3.98-5.22) M/mm3 Hgb (11.2-15.7) gm/dl Hct (34.1-44.9) % MCV (79.4-94.8) fl MCH (25.6-32.2) pg MCHC (32.2-35.5) g/dl RDW Std Deviation (36.4-46.3) fL Plt Count (182-369) K/mm3 MPV (9.4-12.3) fl Neut % (Auto) (34.0-71.1) % Lymph % (Auto) (19.3-51.7) % Russell % (Auto) (4.7-12.5) % Eos % (Auto) (0.7-5.8) Baso % (Auto) (0.1-1.2) % Neut # (Auto) (1.56-6.13) K/mm3 Lymph # (Auto) (1.18-3.74) K/mm3 Russell # (Auto) (0.24-0.36) K/mm3 Eos # (Auto) (0.04-0.36) K/mm3 Baso # (Auto) (0.01-0.08) K/mm3 Manual Slide Review D-Dimer, Quantitative (0.19-0.50) mg/L Sodium (136-145) mEq/L Potassium (3.5-5.1) mEq/L Chloride (98-107) mEq/L Carbon Dioxide (21-32) mEq/L Anion Gap (5-15) BUN (7-18) mg/dL Creatinine (0.55-1.02) mg/dL Est Cr Clr Drug Dosing mL/min Estimated GFR (MDRD) (>60) mL/min BUN/Creatinine Ratio (14-18) Glucose (70-99) mg/dL POC Glucose 327 H (70-99) mg/dL Hemoglobin A1c 6.9 H ( - 5.6) % Calcium (8.5-10.1) mg/dL Magnesium (1.8-2.4) mg/dL Total Bilirubin (0.2-1.0) mg/dL AST (15-37) U/L ALT (14-59) U/L Alkaline Phosphatase (46-116) U/L C-Reactive Protein (<1.0) mg/dL Total Protein (6.4-8.2) g/dl Albumin (3.4-5.0) g/dl Globulin gm/dL Albumin/Globulin Ratio (1-2) Vitamin D 25-Hydroxy 25.4 L (30.0-100.0) ng/ml 09/16/21 09/17/21 09/17/21 Range/Units 21:27 06:13 06:39 WBC 7.97 (3.98-10.04) K/mm3 RBC 5.05 (3.98-5.22) M/mm3 Hgb 13.4 (11.2-15.7) gm/dl Hct 42.2 (34.1-44.9) % MCV 83.6 (79.4-94.8) fl MCH 26.5 (25.6-32.2) pg MCHC 31.8 L (32.2-35.5) g/dl RDW Std Deviation 45.7 (36.4-46.3) fL Plt Count 362 (182-369) K/mm3 MPV 11.3 (9.4-12.3) fl Neut % (Auto) 67.4 (34.0-71.1) % Lymph % (Auto) 19.8 (19.3-51.7) % Russell % (Auto) 12.4 (4.7-12.5) % Eos % (Auto) 0 L (0.7-5.8) Baso % (Auto) 0.1 (0.1-1.2) % Neut # (Auto) 5.37 (1.56-6.13) K/mm3 Lymph # (Auto) 1.58 (1.18-3.74) K/mm3 Russell # (Auto) 0.99 H (0.24-0.36) K/mm3 Eos # (Auto) 0.00 L (0.04-0.36) K/mm3 Baso # (Auto) 0.01 (0.01-0.08) K/mm3 Manual Slide Review Normal smear D-Dimer, Quantitative (0.19-0.50) mg/L Sodium (136-145) mEq/L Potassium (3.5-5.1) mEq/L Chloride (98-107) mEq/L Carbon Dioxide (21-32) mEq/L Anion Gap (5-15) BUN (7-18) mg/dL Creatinine (0.55-1.02) mg/dL Est Cr Clr Drug Dosing mL/min Estimated GFR (MDRD) (>60) mL/min BUN/Creatinine Ratio (14-18) Glucose (70-99) mg/dL POC Glucose 277 H 236 H (70-99) mg/dL Hemoglobin A1c ( - 5.6) % Calcium (8.5-10.1) mg/dL Magnesium (1.8-2.4) mg/dL Total Bilirubin (0.2-1.0) mg/dL AST (15-37) U/L ALT (14-59) U/L Alkaline Phosphatase (46-116) U/L C-Reactive Protein (<1.0) mg/dL Total Protein (6.4-8.2) g/dl Albumin (3.4-5.0) g/dl Globulin gm/dL Albumin/Globulin Ratio (1-2) Vitamin D 25-Hydroxy (30.0-100.0) ng/ml Result Diagrams: 09/17/21 06:13 09/17/21 06:13 Sepsis Event Note - Evaluation Sepsis Screening Result: No Definite Risk - Focused Exam Vital Signs: Vital Signs Temp Pulse Resp BP Pulse Ox Pulse Ox 09/17/21 06:24 97.3 F 73 18 99/74 96 09/17/21 03:20 97.2 F 68 16 98/71 93 L 09/16/21 23:57 97.9 F 69 18 121/71 91 L 09/16/21 21:19 97.2 F 80 16 112/68 92 L 09/16/21 20:24 94 L - Problem List & Annotations (1) Acute respiratory failure due to COVID-19 SNOMED Code(s): 788800920 Code(s): U07.1 - COVID-19; J96.00 - ACUTE RESPIRATORY FAILURE, UNSP W HYPOXIA OR HYPERCAPNIA Status: Acute Priority: High Current Visit: Yes (2) Pneumonia due to 2019 novel coronavirus SNOMED Code(s): 902528422426304762 Code(s): U07.1 - COVID-19; J12.82 - PNEUMONIA DUE TO CORONAVIRUS DISEASE 2019 Status: Acute Priority: High Current Visit: Yes (3) Hyperglycemia SNOMED Code(s): 44077252 Code(s): R73.9 - HYPERGLYCEMIA, UNSPECIFIED Status: Acute Priority: High Current Visit: Yes (4) New onset type 2 diabetes mellitus SNOMED Code(s): 92986627 Code(s): E11.9 - TYPE 2 DIABETES MELLITUS WITHOUT COMPLICATIONS Status: Acute Priority: High Current Visit: Yes - Problem List Review Problem List Initiated/Reviewed/Updated: Yes - My Orders Last 24 Hours: My Active Orders 09/16/21 10:28 Consult to Respiratory Therapy [Respiratory Care Assess and Treatment] [CONS] Routine 09/16/21 10:30 Zinc Sulfate [Zincate] 220 mg PO DAILY 09/16/21 10:35 RT Post Treatment Assessment [RC] Click to Edit RT Pre-Treatment Assessment [RC] Click to Edit Albuterol [Proventil HFA] See Dose Instructions INH Q2H PRN 09/16/21 12:50 Consult to Diabetic Nurse Specialist [CONS] Routine Consult to Drapery Inspector [CONS] Routine 09/16/21 13:00 Cholecalciferol (Vitamin D3) [Vitamin D3] 5,000 unit PO DAILY 09/16/21 13:12 Blood Glucose Check, Bedside [RC] QIDACANDBED 09/16/21 Dinner Consistent Carbohydrate Diet [DIET] Insulin Lispro [HumaLOG] See Protocol SUBCUT QIDACANDBED 09/17/21 06:13 CMP [COMPREHENSIVE METABOLIC PN,CMP] [CHEM] AM CRP [C-REACTIVE PROTEIN] [CHEM] AM MAGNESIUM [CHEM] AM PHOSPHORUS [CHEM] AM 09/18/21 05:11 CBC WITH AUTO DIFF [HEME] AM CMP [COMPREHENSIVE METABOLIC PN,CMP] [CHEM] AM CRP [C-REACTIVE PROTEIN] [CHEM] AM MAGNESIUM [CHEM] AM 09/18/21 10:30 DD [D-DIMER QUANTITATIVE] [COAG] Q48H 09/19/21 05:11 CBC WITH AUTO DIFF [HEME] AM CMP [COMPREHENSIVE METABOLIC PN,CMP] [CHEM] AM CRP [C-REACTIVE PROTEIN] [CHEM] AM MAGNESIUM [CHEM] AM 09/20/21 05:11 CBC WITH AUTO DIFF [HEME] AM CMP [COMPREHENSIVE METABOLIC PN,CMP] [CHEM] AM CRP [C-REACTIVE PROTEIN] [CHEM] AM MAGNESIUM [CHEM] AM 09/20/21 10:30 DD [D-DIMER QUANTITATIVE] [COAG] Q48H 09/22/21 10:30 DD [D-DIMER QUANTITATIVE] [COAG] Q48H - Plan Plan:: 09/15/2021 The patient is an otherwise healthy 45-year-old lady who had been admitted secondary to acute respiratory failure due to COVID-19 pneumonia. The patient has been started on remdesivir 100 mg IV for the next 4 days. She is also on dexamethasone 6 mg p.o. daily. The patient has been anticoagulated with the use of Lovenox 40 mg subcutaneous daily. The patient has been instructed in the use of the incentive spirometer as well as Acapella. Repeat laboratory studies have been ordered for the morning. The patient should be appropriate for discharge once she has completed the full dose of remdesivir or sooner if she has improved significantly. The patient has been encouraged to ambulate. 09/16/2021 45-year-old female admitted to the floor for COVID-19 pneumonia with secondary respiratory failure. She continues on remdesivir and dexamethasone 6 mg daily. She is also receiving 40 mg Lovenox daily. She remains on 1 L of oxygen. She has been utilizing incentive spirometry and Acapella and proning. She reports she overall feels much better than yesterday. WBC today is 5.88. Hemoglobin 12.9. Platelet 302,000. Neutrophils are elevated 74.6%. D-dimer was 0.26. Sodium was 139. Potassium 4.3. Chloride 105. Carbon dioxide 25. BUN is 12. Creatinine 0.8. GFR greater than 60. Glucose is 312. Hemoglobin A1c was obtained is 6.9. Because of this her elevated hemoglobin A1c and glucose we will order low-dose sliding scale insulin and a consistent carbohydrate diet. We will also order dietitian consult and diabetic nurse educator consult. Magnesium today was 2.4. Total bilirubin 0.1. AST was 28, ALT 57, alkaline phosphatase 72. CRP was 4.5. Albumin was 2.8. Vitamin D was obtained and was 25.4. We will start her on daily vitamin D supplementation as well. She will remain hospitalized until off oxygen or completes her treatment. 09/17/2021 45-year-old female admitted to the floor for respiratory failure due to COVID-19 pneumonia. She continues on remdesivir and dexamethasone 6 mg daily along with 40 mg Lovenox daily for VTE prophylaxis. She is down to 0.5 L of oxygen and has been doing quite well with this. She continues to utilize her incentive spirometer and Acapella. She has been proning. Blood sugars have been noted to be elevated yesterday and A1c was obtained and was found to be 6.9. She reports that she has been "prediabetic" in the past and was on Metformin for a brief time. She states after discussion with her primary care provider they opted for lifestyle changes and she was able to bring her A1c down. We discussed steroids elevating blood glucose readings and how she would now be receiving regular b lood glucose checks. boiler room operator and dietitian have been consulted. Diet was changed to a consistent carbohydrate diet. Labs today show WBC of 7.97. Hemoglobin 13.4. Platelet 362,000. Neutrophils are normal at 67.4. Sodium is 140. Potassium 4.2. Chloride 106. Carbon dioxide 25. Anion gap is 13.2. BUN is 15. Creatinine 0.5. GFR greater than 60. Glucose is between 236 and 327. Calcium is 8.5. Phosphorus 3.6. Magnesium 2.1. Total bilirubin 0.2. AST is 20, ALT 50, alkaline phosphatase 70. CRP is 2.1. Albumin is 2.8. We will continue current COVID-19 treatment plan and work on weaning patient from oxygen. Plan will be to discharge patient after patient completes remdesivir or is able to maintain off of oxygen. <Andrew Rodriguez - Last Filed: 09/17/21 15:56> - Patient Data Vitals - Most Recent: Last Vital Signs Temp 35.9 C L 09/17/21 11:35 Pulse 78 09/17/21 11:35 Resp 14 09/17/21 11:35 BP 110/73 09/17/21 11:35 Pulse Ox 96 09/17/21 12:44 I&O - Last 24 Hours: Intake & Output 09/17/21 09/17/21 09/17/21 06:59 14:59 22:59 Intake Total 150 175 475 Output Total 400 250 Balance -250 175 225 Lab Results Last 24 Hours: Laboratory Results - last 24 hr 09/16/21 09/16/21 09/17/21 Range/Units 17:19 21:27 06:13 WBC 7.97 (3.98-10.04) K/mm3 RBC 5.05 (3.98-5.22) M/mm3 Hgb 13.4 (11.2-15.7) gm/dl Hct 42.2 (34.1-44.9) % MCV 83.6 (79.4-94.8) fl MCH 26.5 (25.6-32.2) pg MCHC 31.8 L (32.2-35.5) g/dl RDW Std Deviation 45.7 (36.4-46.3) fL Plt Count 362 (182-369) K/mm3 MPV 11.3 (9.4-12.3) fl Neut % (Auto) 67.4 (34.0-71.1) % Lymph % (Auto) 19.8 (19.3-51.7) % Russell % (Auto) 12.4 (4.7-12.5) % Eos % (Auto) 0 L (0.7-5.8) Baso % (Auto) 0.1 (0.1-1.2) % Neut # (Auto) 5.37 (1.56-6.13) K/mm3 Lymph # (Auto) 1.58 (1.18-3.74) K/mm3 Russell # (Auto) 0.99 H (0.24-0.36) K/mm3 Eos # (Auto) 0.00 L (0.04-0.36) K/mm3 Baso # (Auto) 0.01 (0.01-0.08) K/mm3 Manual Slide Review Normal smear Sodium (136-145) mEq/L Potassium (3.5-5.1) mEq/L Chloride (98-107) mEq/L Carbon Dioxide (21-32) mEq/L Anion Gap (5-15) BUN (7-18) mg/dL Creatinine (0.55-1.02) mg/dL Est Cr Clr Drug Dosing mL/min Estimated GFR (MDRD) (>60) mL/min BUN/Creatinine Ratio (14-18) Glucose (70-99) mg/dL POC Glucose 327 H 277 H (70-99) mg/dL Calcium (8.5-10.1) mg/dL Phosphorus (2.6-4.7) mg/dL Magnesium (1.8-2.4) mg/dL Total Bilirubin (0.2-1.0) mg/dL AST (15-37) U/L ALT (14-59) U/L Alkaline Phosphatase (46-116) U/L C-Reactive Protein (<1.0) mg/dL Total Protein (6.4-8.2) g/dl Albumin (3.4-5.0) g/dl Globulin gm/dL Albumin/Globulin Ratio (1-2) 09/17/21 09/17/21 09/17/21 Range/Units 06:13 06:39 11:34 WBC (3.98-10.04) K/mm3 RBC (3.98-5.22) M/mm3 Hgb (11.2-15.7) gm/dl Hct (34.1-44.9) % MCV (79.4-94.8) fl MCH (25.6-32.2) pg MCHC (32.2-35.5) g/dl RDW Std Deviation (36.4-46.3) fL Plt Count (182-369) K/mm3 MPV (9.4-12.3) fl Neut % (Auto) (34.0-71.1) % Lymph % (Auto) (19.3-51.7) % Russell % (Auto) (4.7-12.5) % Eos % (Auto) (0.7-5.8) Baso % (Auto) (0.1-1.2) % Neut # (Auto) (1.56-6.13) K/mm3 Lymph # (Auto) (1.18-3.74) K/mm3 Russell # (Auto) (0.24-0.36) K/mm3 Eos # (Auto) (0.04-0.36) K/mm3 Baso # (Auto) (0.01-0.08) K/mm3 Manual Slide Review Sodium 140 (136-145) mEq/L Potassium 4.2 (3.5-5.1) mEq/L Chloride 106 (98-107) mEq/L Carbon Dioxide 25 (21-32) mEq/L Anion Gap 13.2 (5-15) BUN 15 (7-18) mg/dL Creatinine 0.8 (0.55-1.02) mg/dL Est Cr Clr Drug Dosing 67.72 mL/min Estimated GFR (MDRD) > 60 (>60) mL/min BUN/Creatinine Ratio 18.8 H (14-18) Glucose 273 H (70-99) mg/dL POC Glucose 236 H 242 H (70-99) mg/dL Calcium 8.5 (8.5-10.1) mg/dL Phosphorus 3.6 (2.6-4.7) mg/dL Magnesium 2.1 (1.8-2.4) mg/dL Total Bilirubin 0.2 (0.2-1.0) mg/dL AST 20 (15-37) U/L ALT 50 (14-59) U/L Alkaline Phosphatase 70 (46-116) U/L C-Reactive Protein 2.1 H* (<1.0) mg/dL Total Protein 6.5 (6.4-8.2) g/dl Albumin 2.8 L (3.4-5.0) g/dl Globulin 3.7 gm/dL Albumin/Globulin Ratio 0.8 L (1-2) Med Orders - Current: Current Medications Acetaminophen (Acetaminophen 325 Mg Tab) 650 mg PO Q4H PRN PRN Reason: Pain/Fever Albuterol (Albuterol 0.083% 2.5 Mg/3 Ml Neb Soln) 2.5 mg NEB Q2H PRN PRN Reason: Dyspnea Last Admin: 09/15/21 21:51 Dose: 2.5 mg Documented by: Albuterol (Albuterol 6.7 Gm Inhaler) 0 gm INH Q2H PRN PRN Reason: SOB/Wheezing Albuterol/Ipratropium (Albuterol/Ipratropium 3.0-0.5 Mg/3 Ml Neb Soln) 3 ml NEB Q4H PRN PRN Reason: Shortness Of Breath/wheezing Cholecalciferol (Cholecalciferol (Vitamin D3) 5,000 Unit Cap) 5,000 unit PO DAILY [facility] Last Admin: 09/17/21 08:22 Dose: 5,000 unit Documented by: Dexamethasone (Dexamethasone 6 Mg Tablet) 6 mg PO DAILY [facility] Stop: 09/23/21 09:01 Last Admin: 09/17/21 08:22 Dose: 6 mg Documented by: Docusate Sodium (Docusate Sodium 100 Mg Cap) 100 mg PO BID PRN PRN Reason: Constipation Enoxaparin Sodium (Enoxaparin 40 Mg/0.4 Ml Syringe) 40 mg SUBCUT DAILY [facility] Last Admin: 09/17/21 08:22 Dose: 40 mg Documented by: Remdesivir 100 mg/ Sodium (Chloride) 250 mls @ 250 mls/hr IV Q24H [facility] Stop: 09/18/21 18:59 Last Admin: 09/16/21 17:36 Dose: 250 mls/hr Documented by: Insulin Human Lispro (Insulin Lispro 100 Unit/Ml 3 Ml Kwikpen) 0 unit SUBCUT QIDACANDBED [facility]; Protocol Last Admin: 09/17/21 12:33 Dose: 4 units Documented by: Ondansetron HCl (Ondansetron 4 Mg/2 Ml Sdv) 4 mg IVPUSH Q6H PRN PRN Reason: Nausea Ondansetron HCl (Ondansetron 4 Mg Tab.Dis) 4 mg PO Q4H PRN PRN Reason: nausea, able to take PO Last Admin: 09/16/21 08:51 Dose: 4 mg Documented by: Oxycodone HCl (Oxycodone 5 Mg Tab) 5 mg PO Q4H PRN PRN Reason: Pain (moderate 4-6) Sodium Chloride (Sodium Chloride 0.9% 10 Ml Syringe) 10 ml FLUSH ASDIRECTED PRN PRN Reason: Keep Vein Open Last Admin: 09/14/21 16:39 Dose: 10 ml Documented by: Temazepam (Temazepam 15 Mg Cap) 15 mg PO BEDTIME PRN PRN Reason: Sleep Zinc Sulfate (Zinc Sulfate 220 Mg Cap) 220 mg PO DAILY [facility] Last Admin: 09/17/21 08:22 Dose: 220 mg Documented by: Discontinued Medications Dexamethasone (Dexamethasone 6 Mg Tablet) 6 mg PO ONETIME ONE Stop: 09/14/21 18:59 Last Admin: 09/14/21 19:33 Dose: 6 mg Documented by: Remdesivir 200 mg/ Sodium (Chloride) 250 mls @ 250 mls/hr IV ONETIME ONE Stop: 09/14/21 19:56 Last Admin: 09/14/21 19:31 Dose: 250 mls/hr Documented by: Sodium Chloride (Normal Saline) 1,000 mls @ 150 mls/hr IV ASDIRECTED [facility] Last Admin: 09/15/21 17:25 Dose: 150 mls/hr Documented by: Morphine Sulfate (Morphine 2 Mg/Ml Syringe) 2 mg IVPUSH Q2H PRN PRN Reason: Pain (severe 7-10) Stop: 09/16/21 06:41 Ondansetron HCl (Ondansetron 4 Mg/2 Ml Sdv) 4 mg IVPUSH ONETIME ONE Stop: 09/14/21 16:13 Last Admin: 09/14/21 16:39 Dose: 4 mg Documented by: - Patient Data Lab Results Last 24 hrs: Laboratory Results - last 24 hr 09/16/21 09/16/21 09/17/21 Range/Units 17:19 21:27 06:13 WBC 7.97 (3.98-10.04) K/mm3 RBC 5.05 (3.98-5.22) M/mm3 Hgb 13.4 (11.2-15.7) gm/dl Hct 42.2 (34.1-44.9) % MCV 83.6 (79.4-94.8) fl MCH 26.5 (25.6-32.2) pg MCHC 31.8 L (32.2-35.5) g/dl RDW Std Deviation 45.7 (36.4-46.3) fL Plt Count 362 (182-369) K/mm3 MPV 11.3 (9.4-12.3) fl Neut % (Auto) 67.4 (34.0-71.1) % Lymph % (Auto) 19.8 (19.3-51.7) % Russell % (Auto) 12.4 (4.7-12.5) % Eos % (Auto) 0 L (0.7-5.8) Baso % (Auto) 0.1 (0.1-1.2) % Neut # (Auto) 5.37 (1.56-6.13) K/mm3 Lymph # (Auto) 1.58 (1.18-3.74) K/mm3 Russell # (Auto) 0.99 H (0.24-0.36) K/mm3 Eos # (Auto) 0.00 L (0.04-0.36) K/mm3 Baso # (Auto) 0.01 (0.01-0.08) K/mm3 Manual Slide Review Normal smear Sodium (136-145) mEq/L Potassium (3.5-5.1) mEq/L Chloride (98-107) mEq/L Carbon Dioxide (21-32) mEq/L Anion Gap (5-15) BUN (7-18) mg/dL Creatinine (0.55-1.02) mg/dL Est Cr Clr Drug Dosing mL/min Estimated GFR (MDRD) (>60) mL/min BUN/Creatinine Ratio (14-18) Glucose (70-99) mg/dL POC Glucose 327 H 277 H (70-99) mg/dL Calcium (8.5-10.1) mg/dL Phosphorus (2.6-4.7) mg/dL Magnesium (1.8-2.4) mg/dL Total Bilirubin (0.2-1.0) mg/dL AST (15-37) U/L ALT (14-59) U/L Alkaline Phosphatase (46-116) U/L C-Reactive Protein (<1.0) mg/dL Total Protein (6.4-8.2) g/dl Albumin (3.4-5.0) g/dl Globulin gm/dL Albumin/Globulin Ratio (1-2) 09/17/21 09/17/21 09/17/21 Range/Units 06:13 06:39 11:34 WBC (3.98-10.04) K/mm3 RBC (3.98-5.22) M/mm3 Hgb (11.2-15.7) gm/dl Hct (34.1-44.9) % MCV (79.4-94.8) fl MCH (25.6-32.2) pg MCHC (32.2-35.5) g/dl RDW Std Deviation (36.4-46.3) fL Plt Count (182-369) K/mm3 MPV (9.4-12.3) fl Neut % (Auto) (34.0-71.1) % Lymph % (Auto) (19.3-51.7) % Russell % (Auto) (4.7-12.5) % Eos % (Auto) (0.7-5.8) Baso % (Auto) (0.1-1.2) % Neut # (Auto) (1.56-6.13) K/mm3 Lymph # (Auto) (1.18-3.74) K/mm3 Russell # (Auto) (0.24-0.36) K/mm3 Eos # (Auto) (0.04-0.36) K/mm3 Baso # (Auto) (0.01-0.08) K/mm3 Manual Slide Review Sodium 140 (136-145) mEq/L Potassium 4.2 (3.5-5.1) mEq/L Chloride 106 (98-107) mEq/L Carbon Dioxide 25 (21-32) mEq/L Anion Gap 13.2 (5-15) BUN 15 (7-18) mg/dL Creatinine 0.8 (0.55-1.02) mg/dL Est Cr Clr Drug Dosing 67.72 mL/min Estimated GFR (MDRD) > 60 (>60) mL/min BUN/Creatinine Ratio 18.8 H (14-18) Glucose 273 H (70-99) mg/dL POC Glucose 236 H 242 H (70-99) mg/dL Calcium 8.5 (8.5-10.1) mg/dL Phosphorus 3.6 (2.6-4.7) mg/dL Magnesium 2.1 (1.8-2.4) mg/dL Total Bilirubin 0.2 (0.2-1.0) mg/dL AST 20 (15-37) U/L ALT 50 (14-59) U/L Alkaline Phosphatase 70 (46-116) U/L C-Reactive Protein 2.1 H* (<1.0) mg/dL Total Protein 6.5 (6.4-8.2) g/dl Albumin 2.8 L (3.4-5.0) g/dl Globulin 3.7 gm/dL Albumin/Globulin Ratio 0.8 L (1-2) Result Diagrams: 09/17/21 06:13 09/17/21 06:13 Sepsis Event Note - Focused Exam Vital Signs: Vital Signs Temp Pulse Resp BP Pulse Ox Pulse Ox Pulse Ox 09/17/21 12:44 96 09/17/21 11:35 35.9 C L 78 14 110/73 90 L 09/17/21 09:17 90 L 09/17/21 08:20 36.4 C 73 20 113/86 90 L 09/17/21 06:24 36.3 C 73 18 99/74 96 - Problem List & Annotations (1) Acute respiratory failure due to COVID-19 SNOMED Code(s): 685283974 Code(s): U07.1 - COVID-19; J96.00 - ACUTE RESPIRATORY FAILURE, UNSP W HYPOXIA OR HYPERCAPNIA Status: Acute Priority: High Current Visit: Yes (2) Pneumonia due to 2019 novel coronavirus SNOMED Code(s): 633539546804789953 Code(s): U07.1 - COVID-19; J12.82 - PNEUMONIA DUE TO CORONAVIRUS DISEASE 2019 Status: Acute Priority: High Current Visit: Yes - Free Text/Narrative Note: I have seen and examined the patient independently of SHELLI Antonio. I have discussed the case with him. I have also reviewed and agree with the plan of care as outlined by him. Please see orders.
[2021-09-17] MEDS: Enoxaparin 40 MG/0.4 ML Syringe SUBCUT SCH (08:22)
[2021-09-17] MEDS: Dexamethasone 6 MG TABLET PO SCH (08:22)
[2021-09-17] MEDS: Zinc Sulfate 220 MG Cap PO SCH (08:22)
[2021-09-17] MEDS: Cholecalciferol (Vitamin D3) 5,000 UNIT Cap PO SCH (08:22)
[2021-09-17] MEDS: Insulin Lispro 100 Unit/ML 3 ML KwikPen SUBCUT SCH ×4 (08:23→21:46)
[2021-09-17] MEDS: REMDESIVIR 100 MG in Sodium Chloride 0.9% 250 ML IV SCH (17:29)
--- NOTE | 2021-09-18 07:05 | PCM.PN ---
- General Info Date of Service: 09/18/21 Admission Dx/Problem (Free Text): Admission Diagnosis/Problem Admission Diagnosis/Problem Hypoxemia Functional Status: Reports: Pain Controlled, Tolerating Diet, Ambulating, Urinating, Incentive Spirometry. Denies: New Symptoms - Review of Systems General: Reports: No Symptoms. Denies: Fever, Weakness, Fatigue, Malaise, Chills HEENT: Reports: No Symptoms. Denies: Headaches, Sore Throat Pulmonary: Reports: Cough, Sputum. Denies: Shortness of Breath, Pleuritic Chest Pain, Wheezing Cardiovascular: Reports: No Symptoms, Dyspnea on Exertion. Denies: Chest Pain, Palpitations, Edema, Lightheadedness Gastrointestinal: Reports: No Symptoms. Denies: Abdominal Pain, Constipation, Diarrhea, Nausea, Vomiting Genitourinary: Reports: No Symptoms. Denies: Pain Musculoskeletal: Reports: No Symptoms. Denies: Neck Pain Skin: Reports: No Symptoms. Denies: Cyanosis Neurological: Reports: No Symptoms. Denies: Confusion, Dizziness, Headache, Numbness, Syncope, Tingling, Difficulty Walking, Weakness, Gait Disturbance Psychiatric: Reports: No Symptoms - Patient Data Vitals - Most Recent: Last Vital Signs Temp 97.0 F 09/18/21 04:01 Pulse 69 09/18/21 04:01 Resp 18 09/18/21 04:01 BP 119/80 09/18/21 04:01 Pulse Ox 92 L 09/18/21 04:01 Weight - Most Recent: 196 lb 8 oz I&O - Last 24 Hours: Intake & Output 09/17/21 09/18/21 09/18/21 22:59 06:59 14:59 Intake Total 750 150 Output Total 250 600 Balance 500 -450 Lab Results Last 24 Hours: Laboratory Results - last 24 hr 09/17/21 09/17/21 09/17/21 Range/Units 06:13 06:13 11:34 Manual Slide Review Normal smear Sodium 140 (136-145) mEq/L Potassium 4.2 (3.5-5.1) mEq/L Chloride 106 (98-107) mEq/L Carbon Dioxide 25 (21-32) mEq/L Anion Gap 13.2 (5-15) BUN 15 (7-18) mg/dL Creatinine 0.8 (0.55-1.02) mg/dL Est Cr Clr Drug Dosing 67.72 mL/min Estimated GFR (MDRD) > 60 (>60) mL/min BUN/Creatinine Ratio 18.8 H (14-18) Glucose 273 H (70-99) mg/dL POC Glucose 242 H (70-99) mg/dL Calcium 8.5 (8.5-10.1) mg/dL Phosphorus 3.6 (2.6-4.7) mg/dL Magnesium 2.1 (1.8-2.4) mg/dL Total Bilirubin 0.2 (0.2-1.0) mg/dL AST 20 (15-37) U/L ALT 50 (14-59) U/L Alkaline Phosphatase 70 (46-116) U/L C-Reactive Protein 2.1 H* (<1.0) mg/dL Total Protein 6.5 (6.4-8.2) g/dl Albumin 2.8 L (3.4-5.0) g/dl Globulin 3.7 gm/dL Albumin/Globulin Ratio 0.8 L (1-2) 09/17/21 09/17/21 09/18/21 Range/Units 16:58 21:31 06:50 Manual Slide Review Sodium (136-145) mEq/L Potassium (3.5-5.1) mEq/L Chloride (98-107) mEq/L Carbon Dioxide (21-32) mEq/L Anion Gap (5-15) BUN (7-18) mg/dL Creatinine (0.55-1.02) mg/dL Est Cr Clr Drug Dosing mL/min Estimated GFR (MDRD) (>60) mL/min BUN/Creatinine Ratio (14-18) Glucose (70-99) mg/dL POC Glucose 296 H 331 H 215 H (70-99) mg/dL Calcium (8.5-10.1) mg/dL Phosphorus (2.6-4.7) mg/dL Magnesium (1.8-2.4) mg/dL Total Bilirubin (0.2-1.0) mg/dL AST (15-37) U/L ALT (14-59) U/L Alkaline Phosphatase (46-116) U/L C-Reactive Protein (<1.0) mg/dL Total Protein (6.4-8.2) g/dl Albumin (3.4-5.0) g/dl Globulin gm/dL Albumin/Globulin Ratio (1-2) Med Orders - Current: Current Medications Acetaminophen (Acetaminophen 325 Mg Tab) 650 mg PO Q4H PRN PRN Reason: Pain/Fever Albuterol (Albuterol 0.083% 2.5 Mg/3 Ml Neb Soln) 2.5 mg NEB Q2H PRN PRN Reason: Dyspnea Last Admin: 09/15/21 21:51 Dose: 2.5 mg Documented by: Albuterol (Albuterol 6.7 Gm Inhaler) 0 gm INH Q2H PRN PRN Reason: SOB/Wheezing Albuterol/Ipratropium (Albuterol/Ipratropium 3.0-0.5 Mg/3 Ml Neb Soln) 3 ml NEB Q4H PRN PRN Reason: Shortness Of Breath/wheezing Cholecalciferol (Cholecalciferol (Vitamin D3) 5,000 Unit Cap) 5,000 unit PO DAILY [facility] Last Admin: 09/17/21 08:22 Dose: 5,000 unit Documented by: Dexamethasone (Dexamethasone 6 Mg Tablet) 6 mg PO DAILY [facility] Stop: 09/23/21 09:01 Last Admin: 09/17/21 08:22 Dose: 6 mg Documented by: Docusate Sodium (Docusate Sodium 100 Mg Cap) 100 mg PO BID PRN PRN Reason: Constipation Enoxaparin Sodium (Enoxaparin 40 Mg/0.4 Ml Syringe) 40 mg SUBCUT DAILY [facility] Last Admin: 09/17/21 08:22 Dose: 40 mg Documented by: Remdesivir 100 mg/ Sodium (Chloride) 250 mls @ 250 mls/hr IV Q24H [facility] Stop: 09/18/21 18:59 Last Admin: 09/17/21 17:29 Dose: 250 mls/hr Documented by: Insulin Human Lispro (Insulin Lispro 100 Unit/Ml 3 Ml Kwikpen) 0 unit SUBCUT QIDACANDBED [facility]; Protocol Last Admin: 09/17/21 21:46 Dose: 8 units Documented by: Ondansetron HCl (Ondansetron 4 Mg/2 Ml Sdv) 4 mg IVPUSH Q6H PRN PRN Reason: Nausea Ondansetron HCl (Ondansetron 4 Mg Tab.Dis) 4 mg PO Q4H PRN PRN Reason: nausea, able to take PO Last Admin: 09/16/21 08:51 Dose: 4 mg Documented by: Oxycodone HCl (Oxycodone 5 Mg Tab) 5 mg PO Q4H PRN PRN Reason: Pain (moderate 4-6) Sodium Chloride (Sodium Chloride 0.9% 10 Ml Syringe) 10 ml FLUSH ASDIRECTED PRN PRN Reason: Keep Vein Open Last Admin: 09/14/21 16:39 Dose: 10 ml Documented by: Temazepam (Temazepam 15 Mg Cap) 15 mg PO BEDTIME PRN PRN Reason: Sleep Zinc Sulfate (Zinc Sulfate 220 Mg Cap) 220 mg PO DAILY [facility] Last Admin: 09/17/21 08:22 Dose: 220 mg Documented by: Discontinued Medications Dexamethasone (Dexamethasone 6 Mg Tablet) 6 mg PO ONETIME ONE Stop: 09/14/21 18:59 Last Admin: 09/14/21 19:33 Dose: 6 mg Documented by: Remdesivir 200 mg/ Sodium (Chloride) 250 mls @ 250 mls/hr IV ONETIME ONE Stop: 09/14/21 19:56 Last Admin: 09/14/21 19:31 Dose: 250 mls/hr Documented by: Sodium Chloride (Normal Saline) 1,000 mls @ 150 mls/hr IV ASDIRECTED [facility] Last Admin: 09/15/21 17:25 Dose: 150 mls/hr Documented by: Morphine Sulfate (Morphine 2 Mg/Ml Syringe) 2 mg IVPUSH Q2H PRN PRN Reason: Pain (severe 7-10) Stop: 09/16/21 06:41 Ondansetron HCl (Ondansetron 4 Mg/2 Ml Sdv) 4 mg IVPUSH ONETIME ONE Stop: 09/14/21 16:13 Last Admin: 09/14/21 16:39 Dose: 4 mg Documented by: - Exam Quality Assessment: DVT Prophylaxis. No: Supplemental Oxygen, Urine Catheter General: Alert, Oriented, Cooperative, No Acute Distress HEENT: Pupils Equal, Pupils Reactive, Mucous Membr. Moist/[place] Neck: Supple, Trachea Midline Lungs: Clear to Auscultation, Normal Respiratory Effort, Decreased Breath Sounds Cardiovascular: Regular Rate, Regular Rhythm GI/Abdominal Exam: Normal Bowel Sounds, Soft, Non-Tender, No Distention (Female) Exam: Deferred Back Exam: Normal Inspection, Full Range of Motion Extremities: Normal Inspection, Normal Range of Motion, Non-Tender, No Pedal Edema, Normal Capillary Refill Skin: Warm, Dry, Intact Psy/Mental Status: Alert, Normal Affect, Normal Mood - Patient Data Lab Results Last 24 hrs: Laboratory Results - last 24 hr 09/17/21 09/17/21 09/17/21 Range/Units 06:13 06:13 11:34 Manual Slide Review Normal smear Sodium 140 (136-145) mEq/L Potassium 4.2 (3.5-5.1) mEq/L Chloride 106 (98-107) mEq/L Carbon Dioxide 25 (21-32) mEq/L Anion Gap 13.2 (5-15) BUN 15 (7-18) mg/dL Creatinine 0.8 (0.55-1.02) mg/dL Est Cr Clr Drug Dosing 67.72 mL/min Estimated GFR (MDRD) > 60 (>60) mL/min BUN/Creatinine Ratio 18.8 H (14-18) Glucose 273 H (70-99) mg/dL POC Glucose 242 H (70-99) mg/dL Calcium 8.5 (8.5-10.1) mg/dL Phosphorus 3.6 (2.6-4.7) mg/dL Magnesium 2.1 (1.8-2.4) mg/dL Total Bilirubin 0.2 (0.2-1.0) mg/dL AST 20 (15-37) U/L ALT 50 (14-59) U/L Alkaline Phosphatase 70 (46-116) U/L C-Reactive Protein 2.1 H* (<1.0) mg/dL Total Protein 6.5 (6.4-8.2) g/dl Albumin 2.8 L (3.4-5.0) g/dl Globulin 3.7 gm/dL Albumin/Globulin Ratio 0.8 L (1-2) 09/17/21 09/17/21 09/18/21 Range/Units 16:58 21:31 06:50 Manual Slide Review Sodium (136-145) mEq/L Potassium (3.5-5.1) mEq/L Chloride (98-107) mEq/L Carbon Dioxide (21-32) mEq/L Anion Gap (5-15) BUN (7-18) mg/dL Creatinine (0.55-1.02) mg/dL Est Cr Clr Drug Dosing mL/min Estimated GFR (MDRD) (>60) mL/min BUN/Creatinine Ratio (14-18) Glucose (70-99) mg/dL POC Glucose 296 H 331 H 215 H (70-99) mg/dL Calcium (8.5-10.1) mg/dL Phosphorus (2.6-4.7) mg/dL Magnesium (1.8-2.4) mg/dL Total Bilirubin (0.2-1.0) mg/dL AST (15-37) U/L ALT (14-59) U/L Alkaline Phosphatase (46-116) U/L C-Reactive Protein (<1.0) mg/dL Total Protein (6.4-8.2) g/dl Albumin (3.4-5.0) g/dl Globulin gm/dL Albumin/Globulin Ratio (1-2) Result Diagrams: 09/18/21 05:11 09/18/21 07:15 Sepsis Event Note - Evaluation Sepsis Screening Result: No Definite Risk - Focused Exam Vital Signs: Vital Signs Temp Pulse Resp BP Pulse Ox Pulse Ox 09/18/21 04:01 97.0 F 69 18 119/80 92 L 09/17/21 23:59 97.5 F 68 18 117/63 93 L 09/17/21 21:26 97.7 F 72 20 98/72 92 L 09/17/21 20:23 90 L - Problem List & Annotations (1) Acute respiratory failure due to COVID-19 SNOMED Code(s): 160165500 Code(s): U07.1 - COVID-19; J96.00 - ACUTE RESPIRATORY FAILURE, UNSP W HYPOXIA OR HYPERCAPNIA Status: Resolved Priority: High Current Visit: Yes (2) Pneumonia due to 2019 novel coronavirus SNOMED Code(s): 605575548623759024 Code(s): U07.1 - COVID-19; J12.82 - PNEUMONIA DUE TO CORONAVIRUS DISEASE 2019 Status: Acute Priority: High Current Visit: Yes (3) Hyperglycemia SNOMED Code(s): 43841646 Code(s): R73.9 - HYPERGLYCEMIA, UNSPECIFIED Status: Acute Priority: High Current Visit: Yes (4) New onset type 2 diabetes mellitus SNOMED Code(s): 17909958 Code(s): E11.9 - TYPE 2 DIABETES MELLITUS WITHOUT COMPLICATIONS Status: Acute Priority: High Current Visit: Yes (5) Vitamin D deficiency SNOMED Code(s): 49092506 Code(s): E55.9 - VITAMIN D DEFICIENCY, UNSPECIFIED Status: Acute Priority: Medium Current Visit: Yes - Problem List Review Problem List Initiated/Reviewed/Updated: Yes - My Orders Last 24 Hours: My Active Orders 09/18/21 05:11 CBC WITH AUTO DIFF [HEME] AM CMP [COMPREHENSIVE METABOLIC PN,CMP] [CHEM] AM CRP [C-REACTIVE PROTEIN] [CHEM] AM MAGNESIUM [CHEM] AM 09/18/21 10:30 DD [D-DIMER QUANTITATIVE] [COAG] Q48H 09/19/21 05:11 CBC WITH AUTO DIFF [HEME] AM CMP [COMPREHENSIVE METABOLIC PN,CMP] [CHEM] AM CRP [C-REACTIVE PROTEIN] [CHEM] AM MAGNESIUM [CHEM] AM 09/20/21 05:11 CBC WITH AUTO DIFF [HEME] AM CMP [COMPREHENSIVE METABOLIC PN,CMP] [CHEM] AM CRP [C-REACTIVE PROTEIN] [CHEM] AM MAGNESIUM [CHEM] AM 09/20/21 10:30 DD [D-DIMER QUANTITATIVE] [COAG] Q48H 09/22/21 10:30 DD [D-DIMER QUANTITATIVE] [COAG] Q48H - Plan Plan:: 09/15/2021 The patient is an otherwise healthy 45-year-old lady who had been admitted sec ondary to acute respiratory failure due to COVID-19 pneumonia. The patient has been started on remdesivir 100 mg IV for the next 4 days. She is also on dexamethasone 6 mg p.o. daily. The patient has been anticoagulated with the use of Lovenox 40 mg subcutaneous daily. The patient has been instructed in the use of the incentive spirometer as well as Acapella. Repeat laboratory studies have been ordered for the morning. The patient should be appropriate for discharge once she has completed the full dose of remdesivir or sooner if she has improved significantly. The patient has been encouraged to ambulate. 09/16/2021 45-year-old female admitted to the floor for COVID-19 pneumonia with secondary respiratory failure. She continues on remdesivir and dexamethasone 6 mg daily. She is also receiving 40 mg Lovenox daily. She remains on 1 L of oxygen. She has been utilizing incentive spirometry and Acapella and proning. She reports she overall feels much better than yesterday. WBC today is 5.88. Hemoglobin 12.9. Platelet 302,000. Neutrophils are elevated 74.6%. D-dimer was 0.26. Sodium was 139. Potassium 4.3. Chloride 105. Carbon dioxide 25. BUN is 12. Creatinine 0.8. GFR greater than 60. Glucose is 312. Hemoglobin A1c was obtained is 6.9. Because of this her elevated hemoglobin A1c and glucose we will order low-dose sliding scale insulin and a consistent carbohydrate diet. We will also order dietitian consult and diabetic nurse educator consult. Magnesium today was 2.4. Total bilirubin 0.1. AST was 28, ALT 57, alkaline phosphatase 72. CRP was 4.5. Albumin was 2.8. Vitamin D was obtained and was 25.4. We will start her on daily vitamin D supplementation as well. She will remain hospitalized until off oxygen or completes her treatment. 09/17/2021 45-year-old female admitted to the floor for respiratory failure due to COVID-19 pneumonia. She continues on remdesivir and dexamethasone 6 mg daily along with 40 mg Lovenox daily for VTE prophylaxis. She is down to 0.5 L of oxygen and has been doing quite well with this. She continues to utilize her incentive spirometer and Acapella. She has been proning. Blood sugars have been noted to be elevated yesterday and A1c was obtained and was found to be 6.9. She reports that she has been "prediabetic" in the past and was on Metformin for a brief time. She states after discussion with her primary care provider they opted for lifestyle changes and she was able to bring her A1c down. We discussed steroids elevating blood glucose readings and how she would now be receiving regular blood glucose checks. agricultural extension educator and dietitian have been consulted. Diet was changed to a consistent carbohydrate diet. Labs today show WBC of 7.97. Hemoglobin 13.4. Platelet 362,000. Neutrophils are normal at 67.4. Sodium is 140. Potassium 4.2. Chloride 106. Carbon dioxide 25. Anion gap is 13.2. BUN is 15. Creatinine 0.5. GFR greater than 60. Glucose is between 236 and 327. Calcium is 8.5. Phosphorus 3.6. Magnesium 2.1. Total bilirubin 0.2. AST is 20, ALT 50, alkaline phosphatase 70. CRP is 2.1. Albumin is 2.8. We will continue current COVID-19 treatment plan and work on weaning patient from oxygen. Plan will be to discharge patient after patient completes remdesivir or is able to maintain off of oxygen. 09/18/2021 This is a 45-year-old female admitted the floor with respiratory failure due to COVID-19 pneumonia. She will receive her last dose of remdesivir today and continues on dexamethasone 6 mg daily and Lovenox for VT prophylaxis. She was weaned off of oxygen last night and per nursing did okay overall. They did say she did have some desaturations but overall is doing okay. We will continue to monitor her today and we will give her her last dose of remdesivir this evening. We briefly discussed restarting Metformin on discharge and she would entertain this idea, as her blood sugars have been elevated and will continue to be elevated for some time even after the dexamethasone is stopped. Labs today show WBC of 6.98. Hemoglobin of 13.4. Platelet 366,000. Neutrophils are normal at 57.4. D-dimer 0.30. Sodium is 140. Potassium 4.0. Carbon dioxide 25. Anion gap 13.0. BUN is 14. Creatinine 0.7. GFR is greater than 60. Glucose has been between 331 and 215. Magnesium was 2.0. Bilirubin 0.2. AST is 21, ALT 56, alkaline phosphatase 69. CRP is down to 1.2. Protein is 6.5. Albumin is 2.8. If she continues to do well we will consider discharge tomorrow.
[2021-09-18] MEDS: Insulin Lispro 100 Unit/ML 3 ML KwikPen SUBCUT SCH ×4 (07:43→21:34)
[2021-09-18] MEDS: Dexamethasone 6 MG TABLET PO SCH (08:59)
[2021-09-18] MEDS: Cholecalciferol (Vitamin D3) 5,000 UNIT Cap PO SCH (08:59)
[2021-09-18] MEDS: Enoxaparin 40 MG/0.4 ML Syringe SUBCUT SCH (08:59)
[2021-09-18] MEDS: Zinc Sulfate 220 MG Cap PO SCH (08:59)
[2021-09-18] MEDS: REMDESIVIR 100 MG in Sodium Chloride 0.9% 250 ML IV SCH (17:12)
--- NOTE | 2021-09-19 07:48 | PCM.DCSUM1 ---
Discharge Summary - Hospital Course HPI Initial Comments: The patient is a 45-year-old lady who had presented to the emergency department with a complaint of shortness of breath, cough. Her symptoms started 4 days ago. The patient had been tested positive for COVID-19 infection. The patient says that she has had fever, chills and body aches along with some nausea and diarrhea. Patient has also reported that she has lost her sense of taste and smell. The patient only has been taking [id number] ibuprofen for pain. The patient reports that her had tested positive for COVID-19. The patient has had no specific aggravating or relieving factors although rest does improve her breathing. The patient reports that she has been healthy otherwise. Diagnosis: Stroke: No - Discharge Data Discharge Date: 09/19/21 (Admit date: 09/14/2021) Discharge Disposition: Home, Self-Care 01 Condition: Good - Referral to Home Health Primary Care Physician: SHELLI Vazquez - Discharge Diagnosis/Problem(s) (1) Acute respiratory failure due to COVID-19 SNOMED Code(s): 166519774 ICD Code: U07.1 - COVID-19; J96.00 - ACUTE RESPIRATORY FAILURE, UNSP W HYPOXIA OR HYPERCAPNIA Status: Resolved Priority: High (2) Pneumonia due to 2019 novel coronavirus SNOMED Code(s): 213946953231853844 ICD Code: U07.1 - COVID-19; J12.82 - PNEUMONIA DUE TO CORONAVIRUS DISEASE 2019 Status: Acute Priority: High (3) Hyperglycemia SNOMED Code(s): 46428333 ICD Code: R73.9 - HYPERGLYCEMIA, UNSPECIFIED Status: Acute Priority: High (4) New onset type 2 diabetes mellitus SNOMED Code(s): 34934482 ICD Code: E11.9 - TYPE 2 DIABETES MELLITUS WITHOUT COMPLICATIONS Status: Acute Priority: High (5) Vitamin D deficiency SNOMED Code(s): 47459925 ICD Code: E55.9 - VITAMIN D DEFICIENCY, UNSPECIFIED Status: Acute Priority: Medium - Patient Summary/Data Consults: Consultations 09/16/21 10:28 Consult to Respiratory Therapy [Respiratory Care Assess and Treatment] [CONS] Routine 09/16/21 12:50 Consult to Diabetic Nurse Specialist [CONS] Routine Consult to Polyethylene Combiner [CONS] Routine Labs Pending at D/C: None Recommended Follow-up Testing/Procedures: Follow-up with primary care provider within 5 to 7 days of discharge, sooner if needed. * Patient completed her COVID-19 treatment would not be discharged on any steroids. * Vitamin D was noted to be low here and she was discharged on 5000 units daily vitamin D supplementation. Please monitor this. * Patient was started on zinc supplementation while here is some studies have shown that this may help with Covid symptoms. May discontinue at your discretion. * Discharged on a as needed albuterol inhaler. * Noted to have hyperglycemia while here and A1c was obtained and was 6.9. Patient prescribed 500 mg twice daily AC Metformin. Please follow-up on this. She reports she has been prediabetic in the past. * She did see our visual educator and dietitian. She was given contact information for local diabetic educators if needed. * Discharged on incentive spirometry and Acapella. Instructed to continue this for 1 to 2 weeks or until symptoms resolve. * Recommend repeat CBC, CMP, magnesium, and consider repeat chest x-ray at discharge. * Instructed to continue to isolate for a total of 10 days from symptom onset, or as directed by [facility] school physical therapist. * Patient reported intermittent nausea and was discharged on as needed Zofran as well. Hospital Course: This is a 45-year-old female admitted to the floor for treatment of her COVID-19 pneumonia. She is requiring 1.5 L of oxygen at admission and that was her highest oxygen demand. She was weaned off oxygen prior to discharge. She did receive 5 days of remdesivir and 6 days of dexamethasone. She was utilizing incentive spirometry and Acapella and proning regularly. While here she was noted to have hyperglycemia and A1c was checked and found to be 6.9. Patient does report that she has a history of prediabetes and had been on Metformin in the past, tolerating it well. She states she discussed with her primary care provider at the time plan of care and they did come up with diet and exercise changes. She states her A1c did improve and she was taken off Metformin. She was started on Metformin 500 mg twice daily with meals at discharge. She did see our visual educator and dietitian. She was given contact information for local diabetic educators. Recommend PCP follow-up on this and monitor A1c. Vitamin D was obtained here and was low at 25.4. She was placed on 5000 units daily supplementation and this will be continued at discharge. Please follow-up on this as well. She was discharged on zinc supplementation as some studies have shown that that can improve COVID-19 outcomes. She was also prescribed a as needed albuterol MDI. She was sent home with her incentive spirometer and Acapella and instructed to continue this for 1 to 2 weeks or until symptoms resolve. Recommend follow-up with primary care provider within 5 to 7 days of discharge, sooner if needed. Recommend repeat CBC, CMP, magnesium and consider repeat chest x-ray in follow-up. Discharged home today. - Patient Instructions Diet: Diabetic Diet Activity: As Tolerated Driving: Do Not Drive (until feeling better ) Showering/Bathing: May Shower Notify Provider of: Fever, Increased Pain, Nausea and/or Vomiting Other/Special Instructions: Follow-up with primary care provider within 5 to 7 days of discharge, sooner if needed. You were weaned off of oxygen prior to discharge and will not need this at home. Your vitamin D level was checked here and was low. Prescription was sent for vitamin D supplementation. You were receiving zinc supplementation while here. Some studies have shown that it may help people with Covid. Prescription was sent to your pharmacy. You may discuss continuing this with your primary care provider. No steroid will be prescribed at discharge. As we discussed your blood sugars were noted to be elevated while here and your hemoglobin A1c, which is a test we used to help determine if the patient is diabetic or not was within the diabetic range. Steroids will elevate your blood sugars, but your A1c is reflective of your last 2 to 3 months. As we discussed it is recommended you start Metformin twice a day as prescribed. You may follow-up with your primary care provider in the future regarding this. You were given contact information for our local diabetic educators as well. Continue to utilize your incentive spirometer (clear/blue device you inhale through) and Acapella (tubelike device you blow through) for 1-2 more weeks or until symptoms resolve. Continue to prone (lay on your belly) whenever possible, especially while sleeping or napping. You should continue to isolate/quarantine for a total of 10 days from symptom onset. You will likely receive a call from a school physical therapist for the [facility]. Please follow their directions. Should symptoms return or worsen contact primary care provider or return to the emergency room. - Discharge Plan *PRESCRIPTION DRUG MONITORING PROGRAM REVIEWED*: No *COPY OF PRESCRIPTION DRUG MONITORING REPORT IN PATIENT NIXON: No Prescriptions/Med Rec: metFORMIN [Glucophage XR] 500 mg PO BIDMEALS #40 tab.er Albuterol [Proventil HFA] 2 puff INH Q2H PRN #1 inhaler PRN Reason: SOB/Wheezing Cholecalciferol (Vitamin D3) [Vitamin D3] 5,000 unit PO DAILY #20 cap Zinc Sulfate [Zincate] 220 mg PO DAILY #20 cap ondansetron HCL [Zofran] 4 mg PO Q6H PRN #12 tablet PRN Reason: Nausea Home Medications: Home Meds Ibuprofen 200 mg PO Q6H PRN 09/15/21 [History] Albuterol [Proventil HFA] 2 puff INH Q2H PRN #1 inhaler 09/19/21 [Rx] Cholecalciferol (Vitamin D3) [Vitamin D3] 5,000 unit PO DAILY #20 cap 09/19/21 [Rx] Zinc Sulfate [Zincate] 220 mg PO DAILY #20 cap 09/19/21 [Rx] metFORMIN [Glucophage XR] 500 mg PO BIDMEALS #40 tab.er 09/19/21 [Rx] ondansetron HCL [Zofran] 4 mg PO Q6H PRN #12 tablet 09/19/21 [Rx] Oxygen Therapy Mode: Room Air Patient Handouts: COVID-19, COVID-19 Vaccine Information, 10 Things You Can Do to Manage Your COVID-19 Symptoms at Home - CDC (05/03/2021), Sepsis, Diagnosis, Adult Forms: ED Department Discharge Referrals: Mary Robles PA-C [Primary Care Provider] - 09/30/21 11:15 am (please arrive at 11:15 for check in) - Discharge Summary/Plan Comment DC Time >30 min.: Yes Total # of Minutes for Discharge Time: 40 - General Info Date of Service: 09/19/21 Admission Dx/Problem (Free Text: Admission Diagnosis/Problem Admission Diagnosis/Problem Hypoxemia Functional Status: Reports: Pain Controlled, Tolerating Diet, Ambulating, Urinating, Incentive Spirometry, Other (Acapella ). Denies: New Symptoms - Review of Systems General: Reports: No Symptoms. Denies: Fever, Weakness, Fatigue, Malaise, Chills HEENT: Reports: No Symptoms. Denies: Headaches, Sore Throat Pulmonary: Reports: No Symptoms, Cough. Denies: Shortness of Breath, Pleuritic Chest Pain, Sputum, Wheezing Cardiovascular: Reports: Dyspnea on Exertion (Greatly improved ). Denies: Chest Pain, Palpitations Gastrointestinal: Reports: No Symptoms. Denies: Abdominal Pain, Constipation, Diarrhea, Nausea, Vomiting Genitourinary: Reports: No Symptoms. Denies: Pain Musculoskeletal: Reports: No Symptoms Skin: Reports: No Symptoms. Denies: Cyanosis Neurological: Reports: No Symptoms. Denies: Confusion, Dizziness, Headache, Numbness, Pre-Existing Deficit, Seizure, Syncope, Tingling, Tremors, Difficulty Walking, Weakness, Gait Disturbance Psychiatric: Reports: No Symptoms - Patient Data Vitals - Most Recent: Last Vital Signs Temp 96.8 F L 09/19/21 04:23 Pulse 62 09/19/21 04:23 Resp 20 09/19/21 04:23 BP 125/78 09/19/21 04:23 Pulse Ox 93 L 09/19/21 06:29 Weight - Most Recent: 195 lb 6.4 oz I&O - Last 24 hours: Intake & Output 09/18/21 09/19/21 09/19/21 22:59 06:59 14:59 Intake Total 530 450 Output Total 200 1050 Balance 330 -600 Lab Results - Last 24 hrs: Laboratory Results - last 24 hr 09/18/21 09/18/21 09/18/21 Range/Units 07:15 07:15 10:55 WBC (3.98-10.04) K/mm3 RBC (3.98-5.22) M/mm3 Hgb (11.2-15.7) gm/dl Hct (34.1-44.9) % MCV (79.4-94.8) fl MCH (25.6-32.2) pg MCHC (32.2-35.5) g/dl RDW Std Deviation (36.4-46.3) fL Plt Count (182-369) K/mm3 MPV (9.4-12.3) fl Neut % (Auto) (34.0-71.1) % Lymph % (Auto) (19.3-51.7) % [place] % (Auto) (4.7-12.5) % Eos % (Auto) (0.7-5.8) Baso % (Auto) (0.1-1.2) % Neut # (Auto) (1.56-6.13) K/mm3 Lymph # (Auto) (1.18-3.74) K/mm3 [place] # (Auto) (0.24-0.36) K/mm3 Eos # (Auto) (0.04-0.36) K/mm3 Baso # (Auto) (0.01-0.08) K/mm3 Manual Slide Review D-Dimer, Quantitative 0.30 (0.19-0.50) mg/L Sodium 140 (136-145) mEq/L Potassium 4.0 (3.5-5.1) mEq/L Chloride 106 (98-107) mEq/L Carbon Dioxide 25 (21-32) mEq/L Anion Gap 13.0 (5-15) BUN 14 (7-18) mg/dL Creatinine 0.7 (0.55-1.02) mg/dL Est Cr Clr Drug Dosing 77.39 mL/min Estimated GFR (MDRD) > 60 (>60) mL/min BUN/Creatinine Ratio 20.0 H (14-18) Glucose 239 H (70-99) mg/dL POC Glucose 159 H (70-99) mg/dL Calcium 8.3 L (8.5-10.1) mg/dL Magnesium 2.0 (1.8-2.4) mg/dL Total Bilirubin 0.2 (0.2-1.0) mg/dL AST 21 (15-37) U/L ALT 56 (14-59) U/L Alkaline Phosphatase 69 (46-116) U/L C-Reactive Protein 1.2 H* (<1.0) mg/dL Total Protein 6.5 (6.4-8.2) g/dl Albumin 2.8 L (3.4-5.0) g/dl Globulin 3.7 gm/dL Albumin/Globulin Ratio 0.8 L (1-2) 09/18/21 09/18/21 09/19/21 Range/Units 16:12 20:59 05:48 WBC 8.02 (3.98-10.04) K/mm3 RBC 5.17 (3.98-5.22) M/mm3 Hgb 13.7 (11.2-15.7) gm/dl Hct 42.6 (34.1-44.9) % MCV 82.4 (79.4-94.8) fl MCH 26.5 (25.6-32.2) pg MCHC 32.2 (32.2-35.5) g/dl RDW Std Deviation 45.0 (36.4-46.3) fL Plt Count 404 H (182-369) K/mm3 MPV 10.7 (9.4-12.3) fl Neut % (Auto) 67.9 (34.0-71.1) % Lymph % (Auto) 20.2 (19.3-51.7) % [place] % (Auto) 11.2 (4.7-12.5) % Eos % (Auto) 0.1 L (0.7-5.8) Baso % (Auto) 0.1 (0.1-1.2) % Neut # (Auto) 5.44 (1.56-6.13) K/mm3 Lymph # (Auto) 1.62 (1.18-3.74) K/mm3 [place] # (Auto) 0.90 H (0.24-0.36) K/mm3 Eos # (Auto) 0.01 L (0.04-0.36) K/mm3 Baso # (Auto) 0.01 (0.01-0.08) K/mm3 Manual Slide Review Normal smear D-Dimer, Quantitative (0.19-0.50) mg/L Sodium (136-145) mEq/L Potassium (3.5-5.1) mEq/L Chloride (98-107) mEq/L Carbon Dioxide (21-32) mEq/L Anion Gap (5-15) BUN (7-18) mg/dL Creatinine (0.55-1.02) mg/dL Est Cr Clr Drug Dosing mL/min Estimated GFR (MDRD) (>60) mL/min BUN/Creatinine Ratio (14-18) Glucose (70-99) mg/dL POC Glucose 336 H 322 H (70-99) mg/dL Calcium (8.5-10.1) mg/dL Magnesium (1.8-2.4) mg/dL Total Bilirubin (0.2-1.0) mg/dL AST (15-37) U/L ALT (14-59) U/L Alkaline Phosphatase (46-116) U/L C-Reactive Protein (<1.0) mg/dL Total Protein (6.4-8.2) g/dl Albumin (3.4-5.0) g/dl Globulin gm/dL Albumin/Globulin Ratio (1-2) 09/19/21 09/19/21 Range/Units 05:48 06:36 WBC (3.98-10.04) K/mm3 RBC (3.98-5.22) M/mm3 Hgb (11.2-15.7) gm/dl Hct (34.1-44.9) % MCV (79.4-94.8) fl MCH (25.6-32.2) pg MCHC (32.2-35.5) g/dl RDW Std Deviation (36.4-46.3) fL Plt Count (182-369) K/mm3 MPV (9.4-12.3) fl Neut % (Auto) (34.0-71.1) % Lymph % (Auto) (19.3-51.7) % [place] % (Auto) (4.7-12.5) % Eos % (Auto) (0.7-5.8) Baso % (Auto) (0.1-1.2) % Neut # (Auto) (1.56-6.13) K/mm3 Lymph # (Auto) (1.18-3.74) K/mm3 [place] # (Auto) (0.24-0.36) K/mm3 Eos # (Auto) (0.04-0.36) K/mm3 Baso # (Auto) (0.01-0.08) K/mm3 Manual Slide Review D-Dimer, Quantitative (0.19-0.50) mg/L Sodium 140 (136-145) mEq/L Potassium 4.2 (3.5-5.1) mEq/L Chloride 104 (98-107) mEq/L Carbon Dioxide 26 (21-32) mEq/L Anion Gap 14.2 (5-15) BUN 14 (7-18) mg/dL Creatinine 0.8 (0.55-1.02) mg/dL Est Cr Clr Drug Dosing 67.72 mL/min Estimated GFR (MDRD) > 60 (>60) mL/min BUN/Creatinine Ratio 17.5 (14-18) Glucose 214 H (70-99) mg/dL POC Glucose 186 H (70-99) mg/dL Calcium 8.4 L (8.5-10.1) mg/dL Magnesium 2.1 (1.8-2.4) mg/dL Total Bilirubin 0.2 (0.2-1.0) mg/dL AST 10 L (15-37) U/L ALT 46 (14-59) U/L Alkaline Phosphatase 71 (46-116) U/L C-Reactive Protein 1.2 H* (<1.0) mg/dL Total Protein 6.6 (6.4-8.2) g/dl Albumin 2.9 L (3.4-5.0) g/dl Globulin 3.7 gm/dL Albumin/Globulin Ratio 0.8 L (1-2) Med Orders - Current: Current Medications Acetaminophen (Acetaminophen 325 Mg Tab) 650 mg PO Q4H PRN PRN Reason: Pain/Fever Albuterol (Albuterol 0.083% 2.5 Mg/3 Ml Neb Soln) 2.5 mg NEB Q2H PRN PRN Reason: Dyspnea Last Admin: 09/15/21 21:51 Dose: 2.5 mg Documented by: Albuterol (Albuterol 6.7 Gm Inhaler) 0 gm INH Q2H PRN PRN Reason: SOB/Wheezing Albuterol/Ipratropium (Albuterol/Ipratropium 3.0-0.5 Mg/3 Ml Neb Soln) 3 ml NEB Q4H PRN PRN Reason: Shortness Of Breath/wheezing Cholecalciferol (Cholecalciferol (Vitamin D3) 5,000 Unit Cap) 5,000 unit PO DAILY FRANK Last Admin: 09/18/21 08:59 Dose: 5,000 unit Documented by: Dexamethasone (Dexamethasone 6 Mg Tablet) 6 mg PO DAILY FRANK Stop: 09/23/21 09:01 Last Admin: 09/18/21 08:59 Dose: 6 mg Documented by: Docusate Sodium (Docusate Sodium 100 Mg Cap) 100 mg PO BID PRN PRN Reason: Constipation Enoxaparin Sodium (Enoxaparin 40 Mg/0.4 Ml Syringe) 40 mg SUBCUT DAILY [facility] Last Admin: 09/18/21 08:59 Dose: 40 mg Documented by: Insulin Human Lispro (Insulin Lispro 100 Unit/Ml 3 Ml Kwikpen) 0 unit SUBCUT QIDACANDBED [facility]; Protocol Last Admin: 09/18/21 21:34 Dose: 12 units Documented by: Ondansetron HCl (Ondansetron 4 Mg/2 Ml Sdv) 4 mg IVPUSH Q6H PRN PRN Reason: Nausea Last Admin: 09/18/21 07:43 Dose: 4 mg Documented by: Ondansetron HCl (Ondansetron 4 Mg Tab.Dis) 4 mg PO Q4H PRN PRN Reason: nausea, able to take PO Last Admin: 09/16/21 08:51 Dose: 4 mg Documented by: Oxycodone HCl (Oxycodone 5 Mg Tab) 5 mg PO Q4H PRN PRN Reason: Pain (moderate 4-6) Sodium Chloride (Sodium Chloride 0.9% 10 Ml Syringe) 10 ml FLUSH ASDIRECTED PRN PRN Reason: Keep Vein Open Last Admin: 09/14/21 16:39 Dose: 10 ml Documented by: Temazepam (Temazepam 15 Mg Cap) 15 mg PO BEDTIME PRN PRN Reason: Sleep Zinc Sulfate (Zinc Sulfate 220 Mg Cap) 220 mg PO DAILY [facility] Last Admin: 09/18/21 08:59 Dose: 220 mg Documented by: Discontinued Medications Dexamethasone (Dexamethasone 6 Mg Tablet) 6 mg PO ONETIME ONE Stop: 09/14/21 18:59 Last Admin: 09/14/21 19:33 Dose: 6 mg Documented by: Remdesivir 200 mg/ Sodium (Chloride) 250 mls @ 250 mls/hr IV ONETIME ONE Stop: 09/14/21 19:56 Last Admin: 09/14/21 19:31 Dose: 250 mls/hr Documented by: Remdesivir 100 mg/ Sodium (Chloride) 250 mls @ 250 mls/hr IV Q24H [facility] Stop: 09/18/21 18:59 Last Admin: 09/18/21 17:12 Dose: 250 mls/hr Documented by: Sodium Chloride (Normal Saline) 1,000 mls @ 150 mls/hr IV ASDIRECTED [facility] Last Admin: 09/15/21 17:25 Dose: 150 mls/hr Documented by: Morphine Sulfate (Morphine 2 Mg/Ml Syringe) 2 mg IVPUSH Q2H PRN PRN Reason: Pain (severe 7-10) Stop: 09/16/21 06:41 Ondansetron HCl (Ondansetron 4 Mg/2 Ml Sdv) 4 mg IVPUSH ONETIME ONE Stop: 09/14/21 16:13 Last Admin: 09/14/21 16:39 Dose: 4 mg Documented by: - Exam Quality Assessment: Reports: DVT Prophylaxis. Denies: Supplemental Oxygen, Urine Catheter General: Reports: Alert, Oriented, Cooperative, No Acute Distress HEENT: Reports: Pupils Equal, Pupils Reactive, Mucous Membr. Moist/[place] Neck: Reports: Supple, Trachea Midline Lungs: Reports: Normal Respiratory Effort, Decreased Breath Sounds. Denies: Crackles, Rhonchi, Wheezing Cardiovascular: Reports: Regular Rate, Regular Rhythm GI/Abdominal Exam: Normal Bowel Sounds, Soft, Non-Tender, No Distention (Female) Exam: Deferred Rectal (Female) Exam: Deferred Back Exam: Reports: Normal Inspection, Full Range of Motion Extremities: Normal Inspection, Normal Range of Motion, Non-Tender, No Pedal Edema, Normal Capillary Refill Skin: Reports: Warm, Dry, Intact Neurological: Reports: No New Focal Deficit Psy/Mental Status: Reports: Alert, Normal Affect, Normal Mood
[2021-09-19] MEDS: Dexamethasone 6 MG TABLET PO SCH (08:08)
[2021-09-19] MEDS: Zinc Sulfate 220 MG Cap PO SCH (08:08)
[2021-09-19] MEDS: Cholecalciferol (Vitamin D3) 5,000 UNIT Cap PO SCH (08:08)
[2021-09-19] MEDS: Enoxaparin 40 MG/0.4 ML Syringe SUBCUT SCH (08:09)
[2021-09-19] MEDS: Insulin Lispro 100 Unit/ML 3 ML KwikPen SUBCUT SCH (09:13)
[2021-09-19] MEDS: Ondansetron 4 MG Tab.DIS PO PRN (09:52)
== END 2021-09-19 10:06 | disposition home or self-care (01) | DRG 137 ==
LOC: JD.ED 13:41 → JD.MS 19:03
PROVIDERS: ADMIT Internal Medicine; ATTEND Internal Medicine
PROC: XW033E5 Introduction of Remdesivir Anti-infective into Peripheral Vein, Percutaneous Approach, New Technology Group 5 (ICD-10-PCS; principal; 2021-09-14)
PROC: 3E0DX3Z Introduction of Anti-inflammatory into Mouth and Pharynx, External Approach (ICD-10-PCS; 2021-09-14)
DX: U07.1 COVID-19 (principal); J12.82 Pneumonia due to coronavirus disease 2019; J96.01 Acute respiratory failure with hypoxia; E55.9 Vitamin D deficiency, unspecified; R73.03 Prediabetes; R73.9 Hyperglycemia, unspecified; E66.9 Obesity, unspecified; G43.909 Migraine, unspecified, not intractable, without status migrainosus; Z86.16 Personal history of COVID-19; Z87.891 Personal history of nicotine dependence; Z68.36 Body mass index [BMI] 36.0-36.9, adult
CPT/HCPCS: 36415; 71045; 71045-26; 80053; 82306; 82947; 83036; 83735; 84100; 85025; 85027; 85379; 86140; 94640; 94762; 96374; 99285-25; A9270-GY; J1650; J1815; J2405; J7030; J7050; U0002

== ENCOUNTER 2024-01-03 07:46 | Emergency (ER) | payer BC ==
[2024-01-03] MEDS: HYDROmorphone 0.5 MG/0.5 ML Syringe IVPUSH ONE (08:26)
[2024-01-03] MEDS: Metoclopramide 10 MG/2 ML SDV IVPUSH ONE ×2 (08:26→10:46)
[2024-01-03] MEDS: Dextrose 5%-Lactated Ringers 1,000 ML IV SCH (08:26)
[2024-01-03 08:37] LABS: BASOPHILS ABSOLUTE AUTO 0.1 K/mm3 (0.0-0.2); BASOPHILS PERCENT AUTO 0.6 % (0.0-1.0); EOSINOPHILS PERCENT AUTO 0.1 % (0.0-6.0); HEMATOCRIT 45.1 % (37.0-47.0); HEMOGLOBIN 14.5 gm/dl (12.0-16.0); IMMATURE GRAN ABSOLUTE AUTO 0.05 K/mm3 (0.00-0.05); IMMATURE GRAN PERCENT AUTO 0.4 % (0.0-0.4); LYMPHOCYTES ABSOLUTE AUTO 1.4 K/mm3 (1.0-4.8); MEAN CORPUSCULAR HEMOGLOBIN 27.7 pg (28.0-32.0); MEAN CORPUSCULAR HGB CONC 32.2 g/dl (32.0-36.0); MEAN CORPUSCULAR VOLUME 86.1 fl (83.0-99.0); MEAN PLATELET VOLUME 12.5 fl (9.4-12.3); MONOCYTES ABSOLUTE AUTO 0.5 K/mm3 (0.0-0.8); MONOCYTES PERCENT AUTO 3.6 % (0.0-8.0); NEUTROPHILS ABSOLUTE AUTO 10.6 K/mm3 (1.8-7.7); NEUTROPHILS PERCENT AUTO 84.3 % (41.0-71.0); PLATELET COUNT,PLT 290 K/mm3 (150-400); RED BLOOD CELL COUNT 5.24 M/mm3 (4.10-5.30); WHITE BLOOD CELL COUNT,WBC 12.62 K/mm3 (3.9-11.3)
[2024-01-03 08:57] LABS: A/G RATIO 0.9 (1-2); ALBUMIN 4.1 g/dl (3.4-5.0); ANION GAP 15.7 (5-15); BILIRUBIN TOTAL 0.4 mg/dL (0.2-1.0); BUN/CREATININE RATIO 15.6 (14-18); C-REACTIVE PROTEIN 1.49 mg/dL (<0.30); CALCIUM 9.1 mg/dL (8.5-10.1); CREATININE 0.9 mg/dL (0.55-1.02); EST CRCL DRUG DOSING (CG) 55.51 mL/min; MAGNESIUM 1.8 mg/dL (1.8-2.4); POTASSIUM,K 3.7 mEq/L (3.5-5.1); PROTEIN TOTAL,TP 8.7 g/dl (6.4-8.2)
[2024-01-03] MEDS: Dicyclomine 10 MG Cap PO ONE (09:27)
[2024-01-03 09:35] LABS: APPEARANCE,URINE SLT CLOUDY (Clear); BILIRUBIN,URINE NEGATIVE (Negative); COLOR,URINE YELLOW (Yellow); GLUCOSE,URINE 2+ (Negative); KETONES,URINE 3+ (Negative); LEUKOCYTE ESTERASE,URINE NEGATIVE (Negative); NITRITE,URINE POSITIVE (Negative); OCCULT BLOOD,URINE TRACE-INTACT (Negative); PROTEIN,URINE NEGATIVE (Negative); UROBILINOGEN,URINE 0.2 (0.2-1.0)
[2024-01-03 09:48] LABS: BACTERIA,URINE MANY /hpf (FEW); MUCUS,URINE FEW /hpf (FEW); SQUAMOUS EPITHELIAL CELLS,UR 0-5 /hpf (0-5)
== END 2024-01-03 10:50 | disposition home or self-care (01) ==
LOC: JD.ED 07:46
DX: K52.9 Noninfective gastroenteritis and colitis, unspecified (principal); E66.9 Obesity, unspecified; Z68.39 Body mass index [BMI] 39.0-39.9, adult; Z86.16 Personal history of COVID-19; Z79.899 Other long term (current) drug therapy
CPT/HCPCS: 36415; 74018; 80053; 81001; 83605; 83690; 83735; 84703; 85025; 86140; 96361; 96374; 96375; 96376; 99284; A9270; J1170; J2765; J7121